=== PATIENT | female | born 1990 | race Hispanic/Latino ===

== ENCOUNTER 2017-04-28 14:24 | Outpatient (CLI) | payer OTHER ==
[2017-04-28 15:24] LABS: Bacteria,Urine 1+ /HPF (Negative); Bilirubin,Urine NEG (Negative); Blood,Urine NEG (Negative); Ketones,Urine NEG (Negative); Leukocyte Esterase,Urine TR (Negative); Mucus,Urine FEW /HPF; Nitrite,Urine NEG (Negative); Protein,Urine <15 mg/dL mg/dL (Negative); Urobilinogen,Urine < 2.0 mg/dL (<2.0)
[2017-04-28 15:30] LABS: Hematocrit 33.2 % (30.3-42.9); Hemoglobin 10.3 gm/dl (10.1-14.3); Mean Corpuscular HGB Conc 31 % (30-34); Platelet Count 211 K/mm3 (140-440); Red Blood Count 4.77 M/mm3 (3.65-5.03); Red Cell Distribution Width 19.1 % (13.2-15.2); White Blood Count 10.7 K/mm3 (4.5-11.0)
[2017-04-28 15:31] LABS: Mean Corpuscular Hemoglobin 22 pg (28-32); Mean Corpuscular Volume 69 fl (79-97)
[2017-04-28 15:38] LABS: Alanine Aminotransferase 12 units/L (7-56); Lactate Dehydrogenase 171 units/L (91-180); Uric Acid 6.4 mg/dL (3.5-7.6)
[2017-04-28 16:01] VITALS: BP 122/74
== END 2017-04-28 16:10 | disposition home or self-care (01) ==
LOC: TRG 14:24
PROVIDERS: ATTEND Obstetrics & Gynecology
DX: O48.0 Post-term pregnancy (principal); Z87.891 Personal history of nicotine dependence; Z3A.40 40 weeks gestation of pregnancy
CPT/HCPCS: 36415; 59025; 81001; 82565; 83615; 84450; 84460; 84550; 85027

== ENCOUNTER 2017-04-30 20:11 | Inpatient (IN) | payer OTHER ==
[2017-04-30] MEDS ORDERED: SUBLIMAZE IV PRN (20:22)
[2017-04-30] MEDS ORDERED: MINERAL OIL PO PRN (20:22)
[2017-04-30] MEDS ORDERED: ePHEDrine SULFATE IV PRN (20:22)
[2017-04-30] MEDS ORDERED: BRETHINE SUB-Q PRN (20:22)
[2017-04-30] MEDS ORDERED: XYLOCAINE 2% INFILTRATI ONE (20:27)
--- NOTE | 2017-04-30 20:29 | History and Physical Report ---
History of Present Illness Date of examination: 04/30/17 (pt presents for IOL @ 41w2d) Date of admission: 04/30/17 20:14 History of present illness: EDC Calculations LMP: 04/21/2017 Past History : 1 Term Births: 0 Premature Births: 0 Living Children: 0 Para: 0 Mult. Births: 0 Prev : 0 Prev. attempt? 0 Aborta: 0 Elect. Ab: 0 Spont. Ab: 0 Ectopics: 0 Past Medical History: Negative Past Medical History Past Surgical History: positive - knee, ear and hernia repair Past Medical History Anesthesia Complications: negative Anemia: negative Autoimmune Disorder: negative Bleeding Disorder: negative Blood Transfusions: negative Breast Disease: negative Diabetes: negative Heart Disease: negative Hypertension: negative Hepatitis/Liver Disease: negative Kidney Disease/UTI: negative Neurologic/Epilepsy/Migraines: negative Phlebitis/Varicosities: negative Psychiatric: negative Pulmonary Disease/Asthma: negative Thyroid Disease: negative Hospitalizations: negative 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 No ETOH or drugs Infection History Hx of STD: none HIV Risk Eval: low risk Hepatitis B Risk Eval: low risk Personal hx. of genital herpes: no Partner hx. of genital herpes: no Rash, Viral, or Febrile illness since last LMP? no Varicella/Chicken Pox Status: Previous Disease TB Risk: no Genetic History Congenital Heart Defect: Mom: no Dad: no Jovana Disease: Mom: no Dad: no Thalassemia Mom: no Dad: no Neural Tube Defect Mom: no Dad: no Down's Syndrome Mom: no Dad: no Raffaele-Sachs Mom: no Dad: no Sickle Cell Disease/Trait Mom: no Dad: no Hemophilia Mom: no Dad: no Muscular Dystrophy Mom: no Dad: no Cystic Fibrosis Mom: no Dad: no John Chorea Mom: no Dad: no Mental Retardation Mom: no Dad: no Fragile X Mom: no Dad: no Other Genetic/Chromosomal Disorder Mom: no Dad: no Child w/other defect Mom: no Dad: no Enviromental Exposures Xray Exposure: no Medication, drug, or alcohol use since LMP: no Chemical/Other Exposure: no Exposure to Cat Liter: no Hx of Parvovirus (Fifth Disease): no Occupational Exposure to Children: none Active Medications (reviewed today): IMPLANON IMPL (ETONOGESTREL IMPL) Current Allergies (reviewed today): No known allergies Laboratory Results Routine Urinalysis Leukocytes: negative Nitrite: negative Urobilinogen: negative Protein: negative Blood: negative Ketone: negative Bilirubin: negative Glucose: negative Urine HCG: positive Review of Systems General Denies fever, chills, sweats, anorexia, fatigue, weakness, malaise, weight loss and sleep disorder. Denies nausea, vomiting, headache, swelling of legs, abdominal pain, vaginal discharge, vaginal bleeding and contractions. Denies vaginal discharge, incontinence, dysuria, hematuria, urinary frequency, amenorrhea, menorrhagia, abnormal vaginal bleeding, pelvic pain, genital sores, decreased libido, painful periods, painful sex, urinary urgency, hot flashes, vaginal dryness, vaginal itching and vaginal odor. CV Denies chest pains, palpitations, syncope, dyspnea on exertion, orthopnea, PND and peripheral edema. Resp Denies cough, dyspnea at rest, excessive sputum, hemoptysis, wheezing and pleurisy. GI Denies nausea, vomiting, diarrhea, constipation, change in bowel habits, abdominal pain, melena, hematochezia, jaundice, gas/bloating, indigestion/ heartburn, dysphagia and odynophagia. Endo Denies cold intolerance, heat intolerance, polydipsia, polyphagia, polyuria and unusual weight change. Breast Denies left breast lump, right breast lump, nipple discharge, bloody discharge from nipple, breast pain, abnormal mammogram and breast enlargement. MS Denies back pain, joint pain, joint swelling, muscle cramps, muscle weakness, stiffness, arthritis, sciatica, restless legs, leg pain at night and leg pain with exertion. Derm Denies rash, itching, dryness and suspicious lesions. Neuro Denies paralysis, paresthesias, headache, seizures, tremors, vertigo, transient blindness, frequent falls, frequent headaches and difficulty walking. Psych Denies depression, anxiety, irritability and mood swings. Eyes Denies blurring, diplopia, irritation, discharge, vision loss, eye pain and photophobia. ENT Denies earache, ear discharge, tinnitus, decreased hearing, nasal congestion, nosebleeds, sore throat and hoarseness. Allergy Denies urticaria, allergic rash, hay fever and recurrent infections. Heme Denies abnormal bruising, bleeding and enlarged lymph nodes. 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 Vulva/Vagina: No lesions, normal BUS, normal rugae Cervix: No lesions; no cervical motion tenderness Uterus: normal size and position, midline, mobile Fundal Ht: 6 FHT: - Adnexae: no masses or tenderness Rectovaginal: no masses or tenderness Past History - Obstetrical History Expected Date of Delivery: 04/21/17 Actual Gestation: 41 Week(s) 2 Day(s) : 1 Para: 0 Number of Living Children: 0 Medications and Allergies Allergies Allergy/AdvReac Type Severity Reaction Status Date / Time No Known Allergies Allergy Verified 04/28/17 14:46 Home Medications Medication Instructions Recorded Confirmed Last Taken Type No Known Home Medications [No 04/28/17 04/28/17 Unknown History Reported Home Medications] Active Meds: Active Medications Dinoprostone (Cervidil) 10 mg VG ONCE ONE Stop: 04/30/17 20:23 Ephedrine Sulfate (Ephedrine Sulfate) 10 mg IV Q2M PRN PRN Reason: Hypotension Stop: 04/30/17 20:27 Fentanyl (Sublimaze) 100 mcg IV Q2H PRN PRN Reason: Labor Pain Lactated Ringer's (Lactated Ringers) 1,000 mls @ 125 mls/hr IV DIRECT CORINE Oxytocin/Sodium Chloride (Pitocin/Ns 20 Unit/1000ml Drip) 20 units in 1,000 mls @ 125 mls/hr IV DIRECT CORINE Lidocaine (Xylocaine 2%) 20 ml INFILTRATI ONCE ONE Stop: 04/30/17 20:23 Mineral Oil (Mineral Oil) 30 ml PO QHS PRN PRN Reason: Constipation Ondansetron HCl (Zofran) 4 mg IV Q8H PRN PRN Reason: Nausea And Vomiting Terbutaline Sulfate (Brethine) 0.25 mg SUB-Q ONCE PRN PRN Reason: Hyperstimulation/Hypertonicity Stop: 04/30/17 20:23 - Physical Exam Breasts: Positive: deferred Cardiovascular: Regular rate, Normal S1, Normal S2 Lungs: Positive: Normal air movement Abdomen: Positive: normal appearance, soft, normal bowel sounds. Negative: distention, tenderness Genitourinary (Female): Positive: normal external genitalia, normal perenium Vulva: both: normal Vagina: Positive: normal moisture. Negative: discharge Cervix: Negative: lesion, discharge Uterus: Positive: normal size, normal contour Adnexa: both: normal Anus/Rectum: Positive: normal perianal skin, heme negative. Negative: rectal mass, hemorrhoids Extremities: Positive: normal Deep Tendon Reflex Grade: Normal +2 - Obstetrical FHR: category 1 Uterine Contraction Monitor Mode: External Uterine Contraction Pattern: Irregular Uterine Tone Measurement Phase: Resting Uterine Contraction Intensity: Mild Results All other labs normal. Laboratory Data-Patient Name: QUINTEN BACON Test Date Result Blood Type 09/13/2016 O Rh 09/13/2016 Positive Antibody Screen negative Rubella 09/13/2016 IMMUNE Serology (RPR) 03/17/2017 NR HBsAg 09/13/2016 Negative Hemoglobin 01/05/2017 10.4 Hematocrit 01/05/2017 32.7 Platelets 09/13/2016 229 [id number] Chlamydia DNA 03/17/2017 Negative GC DNA/Culture 03/17/2017 Urine Culture 09/13/2016 Final report Group B Strep cult Negative PAP 08/29/2016 Normal, Satisfactory HIV 03/17/2017 AFP/Quad Screen Glucola Test 3hr GTT (Fasting) 1 hr 2 hr 3 hr [facility]-Patient Name:QUINTEN BACON Test Date Result Varicella Ab Sickle Cell 09/13/2016 Negative PPD Fibronectin Cystic Fibrosis Parvovirus TSH Free T4 Hepatitis C ALT AST Uric Acid Creatinine 24 hr Urine Protein REYES Assessment and Plan 26yo @ 41w2d presents for IOL. Office US gave EFW 89% @ 9-1pounds. Pt is aware of risks of delivering a large baby and the potential for section She has chosen to try for a vaginal delivery. GBS negative. Cervidil tonight. Pitocin tomorrow. Orders in EMR
[2017-04-30] MEDS ORDERED: PITOCin/NS 20 UNIT/1000ML DRIP 20 UNITS/1,000 ML BAG IV SCH (21:00)
[2017-04-30] MEDS ORDERED: CERVIDIL VG ONE (21:22)
[2017-04-30] MEDS ORDERED: AMBIEN PO ONE (22:10)
[2017-05-01 00:03] LABS: Hematocrit 28.4 % (30.3-42.9); Hemoglobin 9.3 gm/dl (10.1-14.3); Mean Corpuscular HGB Conc 33 % (30-34); Platelet Count 213 K/mm3 (140-440); Red Blood Count 4.11 M/mm3 (3.65-5.03); Red Cell Distribution Width 18.7 % (13.2-15.2); White Blood Count 12.6 K/mm3 (4.5-11.0)
[2017-05-01] MEDS: LACTATED RINGERS 1,000 ML IV SCH ×5 (00:03→13:18)
[2017-05-01 00:12] LABS: Mean Corpuscular Hemoglobin 23 pg (28-32); Mean Corpuscular Volume 69 fl (79-97)
[2017-05-01] MEDS ORDERED: PITOCin/NS 30 UNIT/500ML 30 UNITS/500 ML BAG IV SCH (02:00)
--- NOTE | 2017-05-01 04:53 | Progress Note ---
Assessment and Plan Pt states ctx are worsening and she has requested pain medication and to get ready for an epidural. SVE 2,80,-2 Pit @ 2mu. Will have pt be NPO with ice chips. Pt OOB to toilet. Pain med given Bolus for epidural. Re-eval as needed. Subjective - Subjective Date of service: 05/01/17 (pt c/o increasing pain with ctx) Interval history: EDC Calculations LMP: 04/21/2017 Past History : 1 Term Births: 0 Premature Births: 0 Living Children: 0 Para: 0 Mult. Births: 0 Prev : 0 Prev. attempt? 0 Aborta: 0 Elect. Ab: 0 Spont. Ab: 0 Ectopics: 0 Past Medical History: Negative Past Medical History Past Surgical History: positive - knee, ear and hernia repair Past Medical History Anesthesia Complications: negative Anemia: negative Autoimmune Disorder: negative Bleeding Disorder: negative Blood Transfusions: negative Breast Disease: negative Diabetes: negative Heart Disease: negative Hypertension: negative Hepatitis/Liver Disease: negative Kidney Disease/UTI: negative Neurologic/Epilepsy/Migraines: negative Phlebitis/Varicosities: negative Psychiatric: negative Pulmonary Disease/Asthma: negative Thyroid Disease: negative Hospitalizations: negative 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 No ETOH or drugs Infection History Hx of STD: none HIV Risk Eval: low risk Hepatitis B Risk Eval: low risk Personal hx. of genital herpes: no Partner hx. of genital herpes: no Rash, Viral, or Febrile illness since last LMP? no Varicella/Chicken Pox Status: Previous Disease TB Risk: no Genetic History Congenital Heart Defect: Mom: no Dad: no Jovana Disease: Mom: no Dad: no Thalassemia Mom: no Dad: no Neural Tube Defect Mom: no Dad: no Down's Syndrome Mom: no Dad: no Raffaele-Sachs Mom: no Dad: no Sickle Cell Disease/Trait Mom: no Dad: no Hemophilia Mom: no Dad: no Muscular Dystrophy Mom: no Dad: no Cystic Fibrosis Mom: no Dad: no [place]ugh Chorea Mom: no Dad: no Mental Retardation Mom: no Dad: no Fragile X Mom: no Dad: no Other Genetic/Chromosomal Disorder Mom: no Dad: no Child w/other defect Mom: no Dad: no Enviromental Exposures Xray Exposure: no Medication, drug, or alcohol use since LMP: no Chemical/Other Exposure: no Exposure to Cat Liter: no Hx of Parvovirus (Fifth Disease): no Occupational Exposure to Children: none Active Medications (reviewed today): IMPLANON IMPL (ETONOGESTREL IMPL) Current Allergies (reviewed today): No known allergies Laboratory Results Routine Urinalysis Leukocytes: negative Nitrite: negative Urobilinogen: negative Protein: negative Blood: negative Ketone: negative Bilirubin: negative Glucose: negative Urine HCG: positive Review of Systems General Denies fever, chills, sweats, anorexia, fatigue, weakness, malaise, weight loss and sleep disorder. Denies nausea, vomiting, headache, swelling of legs, abdominal pain, vaginal discharge, vaginal bleeding and contractions. Denies vaginal discharge, incontinence, dysuria, hematuria, urinary frequency, amenorrhea, menorrhagia, abnormal vaginal bleeding, pelvic pain, genital sores, decreased libido, painful periods, painful sex, urinary urgency, hot flashes, vaginal dryness, vaginal itching and vaginal odor. CV Denies chest pains, palpitations, syncope, dyspnea on exertion, orthopnea, PND and peripheral edema. Resp Denies cough, dyspnea at rest, excessive sputum, hemoptysis, wheezing and pleurisy. GI Denies nausea, vomiting, diarrhea, constipation, change in bowel habits, abdominal pain, melena, hematochezia, jaundice, gas/bloating, indigestion/ heartburn, dysphagia and odynophagia. Endo Denies cold intolerance, heat intolerance, polydipsia, polyphagia, polyuria and unusual weight change. Breast Denies left breast lump, right breast lump, nipple discharge, bloody discharge from nipple, breast pain, abnormal mammogram and breast enlargement. MS Denies back pain, joint pain, joint swelling, muscle cramps, muscle weakness, stiffness, arthritis, sciatica, restless legs, leg pain at night and leg pain with exertion. Derm Denies rash, itching, dryness and suspicious lesions. Neuro Denies paralysis, paresthesias, headache, seizures, tremors, vertigo, transient blindness, frequent falls, frequent headaches and difficulty walking. Psych Denies depression, anxiety, irritability and mood swings. Eyes Denies blurring, diplopia, irritation, discharge, vision loss, eye pain and photophobia. ENT Denies earache, ear discharge, tinnitus, decreased hearing, nasal congestion, nosebleeds, sore throat and hoarseness. Allergy Denies urticaria, allergic rash, hay fever and recurrent infections. Heme Denies abnormal bruising, bleeding and enlarged lymph nodes. 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 Vulva/Vagina: No lesions, normal BUS, normal rugae Cervix: No lesions; no cervical motion tenderness Uterus: normal size and position, midline, mobile Fundal Ht: 6 FHT: - Adnexae: no masses or tenderness Rectovaginal: no masses or tenderness Patient reports: movement normal Objective - Vital Signs Vital Signs: Vital Signs - 12hr 04/30/17 04/30/17 04/30/17 20:31 20:32 20:34 Temperature 98.3 F Pulse Rate 112 H 112 H Pulse Rate [ 121 H From Monitor] Respiratory 20 Rate Blood Pressure 118/75 Blood Pressure 118/75 [Right Arm] O2 Sat by Pulse 97 Oximetry 04/30/17 04/30/17 04/30/17 20:36 20:41 20:46 Temperature Pulse Rate 113 H 101 H 104 H Pulse Rate [ From Monitor] Respiratory Rate Blood Pressure Blood Pressure [Right Arm] O2 Sat by Pulse 96 97 96 Oximetry 04/30/17 04/30/17 04/30/17 20:51 20:56 21:01 Temperature Pulse Rate 118 H 105 H 116 H Pulse Rate [ From Monitor] Respiratory Rate Blood Pressure Blood Pressure [Right Arm] O2 Sat by Pulse 97 97 96 Oximetry 04/30/17 04/30/17 04/30/17 21:06 21:11 21:16 Temperature Pulse Rate 101 H 111 H 93 H Pulse Rate [ From Monitor] Respiratory Rate Blood Pressure Blood Pressure [Right Arm] O2 Sat by Pulse 97 96 96 Oximetry 04/30/17 04/30/17 04/30/17 21:21 21:26 21:31 Temperature Pulse Rate 97 H 100 H 105 H Pulse Rate [ From Monitor] Respiratory Rate Blood Pressure Blood Pressure [Right Arm] O2 Sat by Pulse 97 95 97 Oximetry 04/30/17 04/30/17 04/30/17 21:36 21:41 21:46 Temperature Pulse Rate 109 H 113 H 97 H Pulse Rate [ From Monitor] Respiratory Rate Blood Pressure Blood Pressure [Right Arm] O2 Sat by Pulse 98 96 97 Oximetry 04/30/17 04/30/17 05/01/17 23:30 23:34 01:02 Temperature 97.8 F Pulse Rate 82 97 H Pulse Rate [ 81 From Monitor] Respiratory 18 Rate Blood Pressure 110/60 Blood Pressure 110/60 [Right Arm] O2 Sat by Pulse 97 97 98 Oximetry 05/01/17 05/01/17 05/01/17 01:07 01:12 01:17 Temperature Pulse Rate 95 H 87 79 Pulse Rate [ From Monitor] Respiratory Rate Blood Pressure Blood Pressure [Right Arm] O2 Sat by Pulse 99 100 100 Oximetry 05/01/17 05/01/17 05/01/17 01:22 01:27 01:32 Temperature Pulse Rate 87 81 98 H Pulse Rate [ From Monitor] Respiratory Rate Blood Pressure Blood Pressure [Right Arm] O2 Sat by Pulse 100 100 99 Oximetry 05/01/17 05/01/17 05/01/17 01:37 02:12 02:16 Temperature Pulse Rate 79 80 75 Pulse Rate [ From Monitor] Respiratory Rate Blood Pressure 107/68 Blood Pressure [Right Arm] O2 Sat by Pulse 99 99 Oximetry 05/01/17 05/01/17 05/01/17 02:17 02:22 02:28 Temperature Pulse Rate 75 75 88 Pulse Rate [ From Monitor] Respiratory Rate Blood Pressure Blood Pressure [Right Arm] O2 Sat by Pulse 99 99 99 Oximetry 05/01/17 05/01/17 05/01/17 02:33 02:38 02:43 Temperature Pulse Rate 76 67 75 Pulse Rate [ From Monitor] Respiratory Rate Blood Pressure Blood Pressure [Right Arm] O2 Sat by Pulse 99 99 99 Oximetry 05/01/17 05/01/17 05/01/17 02:48 02:53 02:58 Temperature Pulse Rate 75 74 80 Pulse Rate [ From Monitor] Respiratory Rate Blood Pressure Blood Pressure [Right Arm] O2 Sat by Pulse 97 98 96 Oximetry 05/01/17 05/01/17 05/01/17 03:03 03:08 03:13 Temperature Pulse Rate 79 79 81 Pulse Rate [ From Monitor] Respiratory Rate Blood Pressure Blood Pressure [Right Arm] O2 Sat by Pulse 96 96 96 Oximetry 05/01/17 05/01/17 05/01/17 03:18 03:23 03:28 Temperature Pulse Rate 79 79 77 Pulse Rate [ From Monitor] Respiratory Rate Blood Pressure Blood Pressure [Right Arm] O2 Sat by Pulse 96 96 96 Oximetry 05/01/17 05/01/17 05/01/17 03:33 03:38 03:45 Temperature Pulse Rate 85 98 H 94 H Pulse Rate [ From Monitor] Respiratory Rate Blood Pressure Blood Pressure [Right Arm] O2 Sat by Pulse 97 97 99 Oximetry 05/01/17 05/01/17 05/01/17 03:46 03:47 03:50 Temperature 98.1 F Pulse Rate 88 74 Pulse Rate [ 88 From Monitor] Respiratory 20 Rate Blood Pressure 122/63 Blood Pressure 122/63 [Right Arm] O2 Sat by Pulse 98 Oximetry 05/01/17 05/01/17 05/01/17 03:55 04:00 04:05 Temperature Pulse Rate 84 71 79 Pulse Rate [ From Monitor] Respiratory Rate Blood Pressure Blood Pressure [Right Arm] O2 Sat by Pulse 100 99 97 Oximetry 05/01/17 05/01/17 05/01/17 04:10 04:15 04:20 Temperature Pulse Rate 90 92 H 87 Pulse Rate [ From Monitor] Respiratory Rate Blood Pressure Blood Pressure [Right Arm] O2 Sat by Pulse 98 99 98 Oximetry 05/01/17 05/01/17 05/01/17 04:25 04:30 04:35 Temperature Pulse Rate 77 72 80 Pulse Rate [ From Monitor] Respiratory Rate Blood Pressure Blood Pressure [Right Arm] O2 Sat by Pulse 100 100 100 Oximetry 05/01/17 05/01/17 04:40 04:45 Temperature Pulse Rate 80 85 Pulse Rate [ From Monitor] Respiratory Rate Blood Pressure Blood Pressure [Right Arm] O2 Sat by Pulse 99 99 Oximetry - Exam Breasts: deferred Cardiovascular: Regular rate Lungs: Normal air movement Abdomen: Present: normal appearance, soft. Absent: distention, tenderness Uterus: Present: normal FHR: auscultation normal, category 1 Uterine Contraction Monitor Mode: External Cervical Dilatation: 2 Cervical Effacement Percentage: 80 Uterine Contraction Frequency (min): -2 Uterine Contraction Pattern: Regular Uterine Contraction Intensity: Moderate Extremities: edema Deep Tendon Reflex Grade: Normal +2 - Labs Labs: Abnormal Labs 04/30/17 23:24 WBC 12.6 H Hgb 9.3 L Hct 28.4 L MCV 69 L MCH 23 L RDW 18.7 H Laboratory Results - last 24 hr 04/30/17 04/30/17 19:15 23:24 WBC 12.6 H RBC 4.11 Hgb 9.3 L Hct 28.4 L MCV 69 L MCH 23 L MCHC 33 RDW 18.7 H Plt Count 213 Blood Type O POSITIVE Antibody Screen TNR GORGE Antibody Screen Negative
[2017-05-01] MEDS ORDERED: ePHEDrine SULFATE ONE (06:26)
[2017-05-01] MEDS: ZOFRAN IV PRN ×2 (06:50→09:05)
[2017-05-01] MEDS ORDERED: ePHEDrine SULFATE IV PRN (06:54)
[2017-05-01] MEDS ORDERED: NARCAN 2 MG/2 ML IV PRN (06:54)
--- NOTE | 2017-05-01 06:54 | Anesthesia Consultation ---
Anesthesia Consult and Med Hx Date of service: 05/01/17 - Airway Anesthetic Teeth Evaluation: Good ROM Head & Neck: Adequate Mental/Hyoid Distance: Adequate Mallampati Class: Class II Intubation Access Assessment: Probably Good - Pulmonary Exam CTA: Yes - Cardiac Exam Cardiac Exam: RRR - Pre-Operative Health Status ASA Pre-Surgery Classification: ASA2 Proposed Anesthetic Plan: Epidural - Pulmonary Hx Asthma: No COPD: No - Cardiovascular System Hx Hypertension: No - Central Nervous System Hx Seizures: No Hx Psychiatric Problems: No - Endocrine Hx Renal Disease: No Hx Hypothyroidism: No Hx Hyperthyroidism: No - Hematic Hx Anemia: No Hx Sickle Cell Disease: No - Other Systems Hx Alcohol Use: No
[2017-05-01] MEDS ORDERED: fentaNYL-BUPIV 2 MCG/ML-0.125% 200 MCG/100 ML BAG EPIDURAL SCH (07:00)
--- NOTE | 2017-05-01 07:03 | Event Note ---
Date: 05/01/17 (epidural complete) Vomited approx 200ml stomach content. comfortable with epidural. SVE unchged.
--- NOTE | 2017-05-01 08:06 | Progress Note ---
Assessment and Plan - Patient Problems (1) Meconium in amniotic fluid Onset Date: 05/01/17 Current Visit: Yes Status: Acute Plan to address problem: SVE 4,80,-2 SROM thick dark brown meconium. NICU notified. Pt made aware of findings and that NICU team will be present for delivery. ISE/IUPC placed. Continue POC Re-eval as needed. Subjective - Subjective Date of service: 05/01/17 (SROM dark meconium) Interval history: EDC Calculations LMP: 04/21/2017 Past History : 1 Term Births: 0 Premature Births: 0 Living Children: 0 Para: 0 Mult. Births: 0 Prev : 0 Prev. attempt? 0 Aborta: 0 Elect. Ab: 0 Spont. Ab: 0 Ectopics: 0 Past Medical History: Negative Past Medical History Past Surgical History: positive - knee, ear and hernia repair Past Medical History Anesthesia Complications: negative Anemia: negative Autoimmune Disorder: negative Bleeding Disorder: negative Blood Transfusions: negative Breast Disease: negative Diabetes: negative Heart Disease: negative Hypertension: negative Hepatitis/Liver Disease: negative Kidney Disease/UTI: negative Neurologic/Epilepsy/Migraines: negative Phlebitis/Varicosities: negative Psychiatric: negative Pulmonary Disease/Asthma: negative Thyroid Disease: negative Hospitalizations: negative 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 No ETOH or drugs Infection History Hx of STD: none HIV Risk Eval: low risk Hepatitis B Risk Eval: low risk Personal hx. of genital herpes: no Partner hx. of genital herpes: no Rash, Viral, or Febrile illness since last LMP? no Varicella/Chicken Pox Status: Previous Disease TB Risk: no Genetic History Congenital Heart Defect: Mom: no Dad: no Jovana Disease: Mom: no Dad: no Thalassemia Mom: no Dad: no Neural Tube Defect Mom: no Dad: no Down's Syndrome Mom: no Dad: no Raffaele-Sachs Mom: no Dad: no Sickle Cell Disease/Trait Mom: no Dad: no Hemophilia Mom: no Dad: no Muscular Dystrophy Mom: no Dad: no Cystic Fibrosis Mom: no Dad: no Independence Chorea Mom: no Dad: no Mental Retardation Mom: no Dad: no Fragile X Mom: no Dad: no Other Genetic/Chromosomal Disorder Mom: no Dad: no Child w/other defect Mom: no Dad: no Enviromental Exposures Xray Exposure: no Medication, drug, or alcohol use since LMP: no Chemical/Other Exposure: no Exposure to Cat Liter: no Hx of Parvovirus (Fifth Disease): no Occupational Exposure to Children: none Active Medications (reviewed today): IMPLANON IMPL (ETONOGESTREL IMPL) Current Allergies (reviewed today): No known allergies Laboratory Results Routine Urinalysis Leukocytes: negative Nitrite: negative Urobilinogen: negative Protein: negative Blood: negative Ketone: negative Bilirubin: negative Glucose: negative Urine HCG: positive Review of Systems General Denies fever, chills, sweats, anorexia, fatigue, weakness, malaise, weight loss and sleep disorder. Denies nausea, vomiting, headache, swelling of legs, abdominal pain, vaginal discharge, vaginal bleeding and contractions. Denies vaginal discharge, incontinence, dysuria, hematuria, urinary frequency, amenorrhea, menorrhagia, abnormal vaginal bleeding, pelvic pain, genital sores, decreased libido, painful periods, painful sex, urinary urgency, hot flashes, vaginal dryness, vaginal itching and vaginal odor. CV Denies chest pains, palpitations, syncope, dyspnea on exertion, orthopnea, PND and peripheral edema. Resp Denies cough, dyspnea at rest, excessive sputum, hemoptysis, wheezing and pleurisy. GI Denies nausea, vomiting, diarrhea, constipation, change in bowel habits, abdominal pain, melena, hematochezia, jaundice, gas/bloating, indigestion/ heartburn, dysphagia and odynophagia. Endo Denies cold intolerance, heat intolerance, polydipsia, polyphagia, polyuria and unusual weight change. Breast Denies left breast lump, right breast lump, nipple discharge, bloody discharge from nipple, breast pain, abnormal mammogram and breast enlargement. MS Denies back pain, joint pain, joint swelling, muscle cramps, muscle weakness, stiffness, arthritis, sciatica, restless legs, leg pain at night and leg pain with exertion. Derm Denies rash, itching, dryness and suspicious lesions. Neuro Denies paralysis, paresthesias, headache, seizures, tremors, vertigo, transient blindness, frequent falls, frequent headaches and difficulty walking. Psych Denies depression, anxiety, irritability and mood swings. Eyes Denies blurring, diplopia, irritation, discharge, vision loss, eye pain and photophobia. ENT Denies earache, ear discharge, tinnitus, decreased hearing, nasal congestion, nosebleeds, sore throat and hoarseness. Allergy Denies urticaria, allergic rash, hay fever and recurrent infections. Heme Denies abnormal bruising, bleeding and enlarged lymph nodes. 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 Vulva/Vagina: No lesions, normal BUS, normal rugae Cervix: No lesions; no cervical motion tenderness Uterus: normal size and position, midline, mobile Fundal Ht: 6 FHT: - Adnexae: no masses or tenderness Rectovaginal: no masses or tenderness Patient reports: movement normal Objective - Vital Signs Vital Signs: Vital Signs - 12hr 04/30/17 04/30/17 04/30/17 20:31 20:32 20:34 Temperature 98.3 F Pulse Rate 112 H 112 H Pulse Rate [ 121 H From Monitor] Respiratory 20 Rate Blood Pressure 118/75 Blood Pressure 118/75 [Right Arm] O2 Sat by Pulse 97 Oximetry 04/30/17 04/30/17 04/30/17 20:36 20:41 20:46 Temperature Pulse Rate 113 H 101 H 104 H Pulse Rate [ From Monitor] Respiratory Rate Blood Pressure Blood Pressure [Right Arm] O2 Sat by Pulse 96 97 96 Oximetry 04/30/17 04/30/17 04/30/17 20:51 20:56 21:01 Temperature Pulse Rate 118 H 105 H 116 H Pulse Rate [ From Monitor] Respiratory Rate Blood Pressure Blood Pressure [Right Arm] O2 Sat by Pulse 97 97 96 Oximetry 06/04/30/17 04/30/17 21:06 21:11 21:16 Temperature Pulse Rate 101 H 111 H 93 H Pulse Rate [ From Monitor] Respiratory Rate Blood Pressure Blood Pressure [Right Arm] O2 Sat by Pulse 97 96 96 Oximetry 04/30/17 04/30/17 04/30/17 21:21 21:26 21:31 Temperature Pulse Rate 97 H 100 H 105 H Pulse Rate [ From Monitor] Respiratory Rate Blood Pressure Blood Pressure [Right Arm] O2 Sat by Pulse 97 95 97 Oximetry 04/30/17 04/30/17 04/30/17 21:36 21:41 21:46 Temperature Pulse Rate 109 H 113 H 97 H Pulse Rate [ From Monitor] Respiratory Rate Blood Pressure Blood Pressure [Right Arm] O2 Sat by Pulse 98 96 97 Oximetry 04/30/17 04/30/17 05/01/17 23:30 23:34 01:02 Temperature 97.8 F Pulse Rate 82 97 H Pulse Rate [ 81 From Monitor] Respiratory 18 Rate Blood Pressure 110/60 Blood Pressure 110/60 [Right Arm] O2 Sat by Pulse 97 97 98 Oximetry 05/01/17 05/01/17 05/01/17 01:07 01:12 01:17 Temperature Pulse Rate 95 H 87 79 Pulse Rate [ From Monitor] Respiratory Rate Blood Pressure Blood Pressure [Right Arm] O2 Sat by Pulse 99 100 100 Oximetry 05/01/17 05/01/17 05/01/17 01:22 01:27 01:32 Temperature Pulse Rate 87 81 98 H Pulse Rate [ From Monitor] Respiratory Rate Blood Pressure Blood Pressure [Right Arm] O2 Sat by Pulse 100 100 99 Oximetry 05/01/17 05/01/17 05/01/17 01:37 02:12 02:16 Temperature Pulse Rate 79 80 75 Pulse Rate [ From Monitor] Respiratory Rate Blood Pressure 107/68 Blood Pressure [Right Arm] O2 Sat by Pulse 99 99 Oximetry 05/01/17 05/01/17 05/01/17 02:17 02:22 02:28 Temperature Pulse Rate 75 75 88 Pulse Rate [ From Monitor] Respiratory Rate Blood Pressure Blood Pressure [Right Arm] O2 Sat by Pulse 99 99 99 Oximetry 05/01/17 05/01/17 05/01/17 02:33 02:38 02:43 Temperature Pulse Rate 76 67 75 Pulse Rate [ From Monitor] Respiratory Rate Blood Pressure Blood Pressure [Right Arm] O2 Sat by Pulse 99 99 99 Oximetry 05/01/17 05/01/17 05/01/17 02:48 02:53 02:58 Temperature Pulse Rate 75 74 80 Pulse Rate [ From Monitor] Respiratory Rate Blood Pressure Blood Pressure [Right Arm] O2 Sat by Pulse 97 98 96 Oximetry 05/01/17 05/01/17 05/01/17 03:03 03:08 03:13 Temperature Pulse Rate 79 79 81 Pulse Rate [ From Monitor] Respiratory Rate Blood Pressure Blood Pressure [Right Arm] O2 Sat by Pulse 96 96 96 Oximetry 05/01/17 05/01/17 05/01/17 03:18 03:23 03:28 Temperature Pulse Rate 79 79 77 Pulse Rate [ From Monitor] Respiratory Rate Blood Pressure Blood Pressure [Right Arm] O2 Sat by Pulse 96 96 96 Oximetry 05/01/17 05/01/17 05/01/17 03:33 03:38 03:45 Temperature Pulse Rate 85 98 H 94 H Pulse Rate [ From Monitor] Respiratory Rate Blood Pressure Blood Pressure [Right Arm] O2 Sat by Pulse 97 97 99 Oximetry 05/01/17 05/01/17 05/01/17 03:46 03:47 03:50 Temperature 98.1 F Pulse Rate 88 74 Pulse Rate [ 88 From Monitor] Respiratory 20 Rate Blood Pressure 122/63 Blood Pressure 122/63 [Right Arm] O2 Sat by Pulse 98 Oximetry 05/01/17 05/01/17 05/01/17 03:55 04:00 04:05 Temperature Pulse Rate 84 71 79 Pulse Rate [ From Monitor] Respiratory Rate Blood Pressure Blood Pressure [Right Arm] O2 Sat by Pulse 100 99 97 Oximetry 05/01/17 05/01/17 05/01/17 04:10 04:15 04:20 Temperature Pulse Rate 90 92 H 87 Pulse Rate [ From Monitor] Respiratory Rate Blood Pressure Blood Pressure [Right Arm] O2 Sat by Pulse 98 99 98 Oximetry 05/01/17 05/01/17 05/01/17 04:25 04:30 04:35 Temperature Pulse Rate 77 72 80 Pulse Rate [ From Monitor] Respiratory Rate Blood Pressure Blood Pressure [Right Arm] O2 Sat by Pulse 100 100 100 Oximetry 05/01/17 05/01/17 05/01/17 04:40 04:45 04:54 Temperature Pulse Rate 80 85 Pulse Rate [ From Monitor] Respiratory 20 Rate Blood Pressure Blood Pressure [Right Arm] O2 Sat by Pulse 99 99 Oximetry 05/01/17 05/01/17 05/01/17 04:55 05:00 05:05 Temperature Pulse Rate 71 69 79 Pulse Rate [ From Monitor] Respiratory Rate Blood Pressure Blood Pressure [Right Arm] O2 Sat by Pulse 100 99 96 Oximetry 05/01/17 05/01/17 05/01/17 05:10 05:15 05:17 Temperature Pulse Rate 81 85 81 Pulse Rate [ From Monitor] Respiratory Rate Blood Pressure Blood Pressure [Right Arm] O2 Sat by Pulse 96 96 94 Oximetry 05/01/17 05/01/17 05/01/17 05:20 05:25 05:30 Temperature Pulse Rate 71 78 109 H Pulse Rate [ From Monitor] Respiratory Rate Blood Pressure Blood Pressure [Right Arm] O2 Sat by Pulse 95 94 98 Oximetry 05/01/17 05/01/17 05/01/17 05:35 05:40 05:45 Temperature Pulse Rate 70 72 80 Pulse Rate [ From Monitor] Respiratory Rate Blood Pressure Blood Pressure [Right Arm] O2 Sat by Pulse 97 96 96 Oximetry 05/01/17 05/01/17 05/01/17 05:50 05:55 06:00 Temperature Pulse Rate 86 71 73 Pulse Rate [ From Monitor] Respiratory Rate Blood Pressure Blood Pressure [Right Arm] O2 Sat by Pulse 97 94 97 Oximetry 05/01/17 05/01/17 05/01/17 06:05 06:10 06:15 Temperature Pulse Rate 73 82 77 Pulse Rate [ From Monitor] Respiratory Rate Blood Pressure Blood Pressure [Right Arm] O2 Sat by Pulse 95 97 96 Oximetry 05/01/17 05/01/17 05/01/17 06:20 06:25 06:30 Temperature Pulse Rate 84 100 H 94 H Pulse Rate [ From Monitor] Respiratory Rate Blood Pressure Blood Pressure [Right Arm] O2 Sat by Pulse 99 100 100 Oximetry 05/01/17 05/01/17 05/01/17 06:35 06:36 06:38 Temperature Pulse Rate 77 83 86 Pulse Rate [ From Monitor] Respiratory Rate Blood Pressure 125/81 114/80 Blood Pressure [Right Arm] O2 Sat by Pulse 100 Oximetry 05/01/17 05/01/17 05/01/17 06:41 06:42 06:44 Temperature Pulse Rate 87 87 87 Pulse Rate [ From Monitor] Respiratory Rate Blood Pressure 134/83 123/77 123/78 Blood Pressure [Right Arm] O2 Sat by Pulse 98 Oximetry 05/01/17 05/01/17 05/01/17 06:46 06:47 06:49 Temperature Pulse Rate 125 H 93 H Pulse Rate [ From Monitor] Respiratory Rate Blood Pressure 120/80 166/66 Blood Pressure [Right Arm] O2 Sat by Pulse 97 Oximetry 05/01/17 05/01/17 05/01/17 06:50 06:51 06:52 Temperature Pulse Rate 85 78 83 Pulse Rate [ From Monitor] Respiratory Rate Blood Pressure 119/75 121/77 Blood Pressure [Right Arm] O2 Sat by Pulse 96 Oximetry 05/01/17 05/01/17 05/01/17 06:55 06:56 07:01 Temperature Pulse Rate 98 H 83 71 Pulse Rate [ From Monitor] Respiratory Rate Blood Pressure 116/73 Blood Pressure [Right Arm] O2 Sat by Pulse 97 96 Oximetry 05/01/17 05/01/17 05/01/17 07:06 07:11 07:16 Temperature Pulse Rate 77 70 67 Pulse Rate [ From Monitor] Respiratory Rate Blood Pressure 119/72 Blood Pressure [Right Arm] O2 Sat by Pulse 96 100 100 Oximetry 05/01/17 05/01/17 05/01/17 07:21 07:26 07:27 Temperature 98 F Pulse Rate 69 73 68 Pulse Rate [ 71 From Monitor] Respiratory 20 Rate Blood Pressure 113/73 Blood Pressure 119/93 [Right Arm] O2 Sat by Pulse 100 100 Oximetry 05/01/17 05/01/17 05/01/17 07:31 07:36 07:41 Temperature Pulse Rate 74 79 79 Pulse Rate [ From Monitor] Respiratory Rate Blood Pressure Blood Pressure [Right Arm] O2 Sat by Pulse 97 100 100 Oximetry 05/01/17 05/01/17 05/01/17 07:43 07:46 07:51 Temperature Pulse Rate 75 74 67 Pulse Rate [ From Monitor] Respiratory Rate Blood Pressure 124/80 Blood Pressure [Right Arm] O2 Sat by Pulse 100 100 Oximetry 05/01/17 05/01/17 07:56 07:57 Temperature Pulse Rate 77 84 Pulse Rate [ From Monitor] Respiratory Rate Blood Pressure 110/75 Blood Pressure [Right Arm] O2 Sat by Pulse 100 Oximetry - Exam Breasts: deferred Cardiovascular: Regular rate Lungs: Normal air movement Abdomen: Present: normal appearance, soft. Absent: distention, tenderness Uterus: Present: normal FHR: auscultation normal Uterine Contraction Monitor Mode: Internal Cervical Dilatation: 4 (thick meconium) Cervical Effacement Percentage: 80 (ISE/IUPC placed) station: -2 Uterine Contraction Frequency (min): 2 Uterine Contraction Duration: 45 Uterine Contraction Pattern: Regular Uterine Contraction Intensity: Moderate Extremities: normal Deep Tendon Reflex Grade: Normal +2 - Labs Labs: Abnormal Labs 04/30/17 23:24 WBC 12.6 H Hgb 9.3 L Hct 28.4 L MCV 69 L MCH 23 L RDW 18.7 H Laboratory Results - last 24 hr 04/30/17 04/30/17 19:15 23:24 WBC 12.6 H RBC 4.11 Hgb 9.3 L Hct 28.4 L MCV 69 L MCH 23 L MCHC 33 RDW 18.7 H Plt Count 213 Blood Type O POSITIVE Antibody Screen TNR GORGE Antibody Screen Negative
--- NOTE | 2017-05-01 13:06 | Event Note ---
Date: 05/01/17 Still 4 cm 100%-3 with now some molding. No change at all in more than 4 hours with large , Cat 1 tracing and adequate labor with IUPC in. Discussed with patient that C/S now indicated for probable CPD and failure to progress with adequate labor.
[2017-05-01] MEDS ORDERED: BICITRA ONE (14:14)
[2017-05-01] MEDS ORDERED: PEPCID IV ONE (14:14)
[2017-05-01] MEDS ORDERED: ANCEF/STERILE WATER 2 GM/20 ML 2 GM/20 ML SYRINGE IV ONE (14:14)
[2017-05-01] MEDS ORDERED: REGLAN ONE (14:14)
[2017-05-01] MEDS ORDERED: NACL 0.9% IR ONE (15:00)
[2017-05-01] MEDS ORDERED: WATER FOR IRRIG STERILE IR ONE (15:00)
[2017-05-01] MEDS ORDERED: ANCEF/STERILE WATER 2 GM/20 ML IV ONE (15:06)
[2017-05-01] MEDS ORDERED: MORPHINE ONE ×2 (15:16→15:17)
[2017-05-01] MEDS ORDERED: METHERGINE IM ONE (15:34)
[2017-05-01] MEDS ORDERED: ZOFRAN ONE (15:37)
[2017-05-01] MEDS ORDERED: TORADOL ONE (15:45)
[2017-05-01] MEDS ORDERED: NEO SYNEPHRINE ONE (15:53)
[2017-05-01] MEDS ORDERED: NACL 0.9% 100 ML ONE (15:53)
[2017-05-01] MEDS ORDERED: ZOFRAN IV PRN (16:14)
[2017-05-01] MEDS ORDERED: MORPHINE IV PRN ×2 (16:14)
[2017-05-01] MEDS ORDERED: NARCAN 0.4 MG/1 ML IV PRN (16:14)
[2017-05-01] MEDS ORDERED: MILK OF MAGNESIA PO PRN (16:14)
[2017-05-01] MEDS ORDERED: LANSINOH TP PRN (16:14)
[2017-05-01] MEDS ORDERED: PHENERGAN PR PRN (16:14)
[2017-05-01] MEDS ORDERED: TORADOL IV PRN (16:14)
[2017-05-01] MEDS ORDERED: TYLENOL PO PRN (16:14)
[2017-05-01] MEDS ORDERED: TUCKS PAD TP PRN (16:14)
--- NOTE | 2017-05-01 16:26 | Operative Report ---
Operative Report Operative Report: Date of Procedure: 05/01/2017 Procedure name(s): Primary transverse low segment section Pre-operative diagnosis: Intrauterine at 41 weeks and 3 days, suspected macrosomia, failure to progress past 4 cm despite adequate labor. meconium, category 1 tracing Post-operative diagnosis: Same plus cephalopelvic disproportion Surgeon: Bess Cleaning M.D. Farm Equipment Engineer: ALLISON Anesthesia: Epidural EBL: 1000 mL : 9 lbs. 7 oz. (4277 g) female, Apgars of 9 and 9 Time of : 1521 Findings Normal tubes and uterus and ovaries Procedure The patient was taken to the operating room and after adequate anesthesia was obtained she was placed in the supine position in left lateral tilt. Sequential compression devices were in place on both lower extremities and a Raphael catheter was placed in a sterile fashion. The abdomen was then prepped and draped in the usual fashion. Surgical time-out was done with the entire OR team attentive. A Pfannenstiel incision was made with a scalpel and sharp dissection was carried down through all layers of the abdomen in the usual fashion. The abdomen was entered bluntly and the lower uterine segment was identified. The presenting part was palpated and a bladder flap was created with the Metzenbaum scissors. The scalpel was used to incise the uterus in a transverse fashion and this incision was extended bluntly with finger traction and the membranes were ruptured. My hand was inserted into the uterus. The vertex was grasped, rotated to an OA presentation and delivered with a combination of traction and fundal pressure. The cord was clamped and cut and a viable infant was suctioned and handed off to the attending NICU staff and was a 9 lbs. 7 oz. female with Apgars of 9 and 9. The placenta was removed manually, the interior of the uterus was cleansed with moist lap packs and the uterus was exteriorized. The uterine incision was closed with a double imbricating layer of 0 Vicryl suture in a running fashion. She'll [id number] suture had to be placed in the left angle to control a developing hematoma inferior to the uterine incision. Hemostasis was adequate and the uterus was returned to the abdomen. Uterus was well contracted. The abdomen was then closed in layers: the rectus muscles were closed with several [id number] sutures of 0 Vicryl, the fascia was closed with running sutures of 0 Vicryl starting at both side corners in turn and tied together in the midline. The subcutaneous tissue was irrigated and then closed with several interrupted sutures of 2-0 plain and the skin was closed with a running subcuticular suture of 4-0 Vicryl. Sponge and Lap count correct X 3, estimated blood loss was 1000 mL and the Raphael was draining clear urine. The patient tolerated the procedure well and was discharged to PACU in good condition.
[2017-05-01] MEDS ORDERED: PITOCin/NS 20 UNIT/1000ML DRIP 20 UNITS/1,000 ML BAG IV SCH (17:00)
[2017-05-01] MEDS ORDERED: D5LR 1,000 ML IV SCH (17:00)
[2017-05-01] MEDS ORDERED: SODIUM CHLORIDE FLUSH SYRINGE 10 ML IV NR (17:00)
[2017-05-01] MEDS: ANCEF/NS 1 GM/50 ML 1 GM/50 ML BAG IV SCH (21:55)
[2017-05-01] MEDS: BENADRYL IV PRN (22:06)
[2017-05-02] MEDS: BENADRYL IV PRN (04:11)
[2017-05-02] MEDS: ANCEF/NS 1 GM/50 ML 1 GM/50 ML BAG IV SCH (05:22)
[2017-05-02 06:03] LABS: Hematocrit 23.8 % (30.3-42.9); Hemoglobin 7.2 gm/dl (10.1-14.3)
--- NOTE | 2017-05-02 07:05 | Progress Note ---
Assessment and Plan - Patient Problems (1) delivery delivered Onset Date: 05/01/17 Current Visit: Yes Status: Acute Plan to address problem: Pt w/o complaint other than itching but states it is much less with the Benadryl. VSS FF below umb Lochia scant Dressing D&I H&H 08/03 drop r/t blood loss from surgery Iron po started. Doing well s/p section P: continue pathway Adv diet and activity Subjective - Subjective Date of service: 05/02/17 (resting; only c/o itching) Principal diagnosis: Day # 1 s/p section Interval history: EDC Calculations LMP: 04/21/2017 Past History : 1 Term Births: 0 Premature Births: 0 Living Children: 0 Para: 0 Mult. Births: 0 Prev : 0 Prev. attempt? 0 Aborta: 0 Elect. Ab: 0 Spont. Ab: 0 Ectopics: 0 Past Medical History: Negative Past Medical History Past Surgical History: positive - knee, ear and hernia repair Past Medical History Anesthesia Complications: negative Anemia: negative Autoimmune Disorder: negative Bleeding Disorder: negative Blood Transfusions: negative Breast Disease: negative Diabetes: negative Heart Disease: negative Hypertension: negative Hepatitis/Liver Disease: negative Kidney Disease/UTI: negative Neurologic/Epilepsy/Migraines: negative Phlebitis/Varicosities: negative Psychiatric: negative Pulmonary Disease/Asthma: negative Thyroid Disease: negative Hospitalizations: negative 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 No ETOH or drugs Infection History Hx of STD: none HIV Risk Eval: low risk Hepatitis B Risk Eval: low risk Personal hx. of genital herpes: no Partner hx. of genital herpes: no Rash, Viral, or Febrile illness since last LMP? no Varicella/Chicken Pox Status: Previous Disease TB Risk: no Genetic History Congenital Heart Defect: Mom: no Dad: no Jovana Disease: Mom: no Dad: no Thalassemia Mom: no Dad: no Neural Tube Defect Mom: no Dad: no Down's Syndrome Mom: no Dad: no Raffaele-Sachs Mom: no Dad: no Sickle Cell Disease/Trait Mom: no Dad: no Hemophilia Mom: no Dad: no Muscular Dystrophy Mom: no Dad: no Cystic Fibrosis Mom: no Dad: no [place] Chorea Mom: no Dad: no Mental Retardation Mom: no Dad: no Fragile X Mom: no Dad: no Other Genetic/Chromosomal Disorder Mom: no Dad: no Child w/other defect Mom: no Dad: no Enviromental Exposures Xray Exposure: no Medication, drug, or alcohol use since LMP: no Chemical/Other Exposure: no Exposure to Cat Liter: no Hx of Parvovirus (Fifth Disease): no Occupational Exposure to Children: none Active Medications (reviewed today): IMPLANON IMPL (ETONOGESTREL IMPL) Current Allergies (reviewed today): No known allergies Laboratory Results Routine Urinalysis Leukocytes: negative Nitrite: negative Urobilinogen: negative Protein: negative Blood: negative Ketone: negative Bilirubin: negative Glucose: negative Urine HCG: positive Review of Systems General Denies fever, chills, sweats, anorexia, fatigue, weakness, malaise, weight loss and sleep disorder. Denies nausea, vomiting, headache, swelling of legs, abdominal pain, vaginal discharge, vaginal bleeding and contractions. Denies vaginal discharge, incontinence, dysuria, hematuria, urinary frequency, amenorrhea, menorrhagia, abnormal vaginal bleeding, pelvic pain, genital sores, decreased libido, painful periods, painful sex, urinary urgency, hot flashes, vaginal dryness, vaginal itching and vaginal odor. CV Denies chest pains, palpitations, syncope, dyspnea on exertion, orthopnea, PND and peripheral edema. Resp Denies cough, dyspnea at rest, excessive sputum, hemoptysis, wheezing and pleurisy. GI Denies nausea, vomiting, diarrhea, constipation, change in bowel habits, abdominal pain, melena, hematochezia, jaundice, gas/bloating, indigestion/ heartburn, dysphagia and odynophagia. Endo Denies cold intolerance, heat intolerance, polydipsia, polyphagia, polyuria and unusual weight change. Breast Denies left breast lump, right breast lump, nipple discharge, bloody discharge from nipple, breast pain, abnormal mammogram and breast enlargement. MS Denies back pain, joint pain, joint swelling, muscle cramps, muscle weakness, stiffness, arthritis, sciatica, restless legs, leg pain at night and leg pain with exertion. Derm Denies rash, itching, dryness and suspicious lesions. Neuro Denies paralysis, paresthesias, headache, seizures, tremors, vertigo, transient blindness, frequent falls, frequent headaches and difficulty walking. Psych Denies depression, anxiety, irritability and mood swings. Eyes Denies blurring, diplopia, irritation, discharge, vision loss, eye pain and photophobia. ENT Denies earache, ear discharge, tinnitus, decreased hearing, nasal congestion, nosebleeds, sore throat and hoarseness. Allergy Denies urticaria, allergic rash, hay fever and recurrent infections. Heme Denies abnormal bruising, bleeding and enlarged lymph nodes. 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 Vulva/Vagina: No lesions, normal BUS, normal rugae Cervix: No lesions; no cervical motion tenderness Uterus: normal size and position, midline, mobile Fundal Ht: 6 FHT: - Adnexae: no masses or tenderness Rectovaginal: no masses or tenderness Patient reports: appetite normal, voiding normally, pain well controlled, ambulating normally : doing well Objective - Vital Signs Latest vital signs: Vital Signs Temp Pulse Pulse Resp BP BP Pulse Ox 05/02/17 04:25 98.4 F 88 20 112/76 05/02/17 00:00 98.7 F 98 H 20 110/65 05/01/17 20:00 98.0 F 82 20 119/73 05/01/17 18:25 98.7 F 78 20 113/68 05/01/17 17:50 98.6 F 05/01/17 17:38 98.8 F 05/01/17 17:35 87 15 116/76 96 05/01/17 17:31 93 H 22 116/76 96 05/01/17 17:25 88 20 86/40 96 05/01/17 17:21 89 16 104/53 98 05/01/17 17:15 75 12 97/58 95 05/01/17 17:10 83 19 96/64 96 05/01/17 17:05 73 14 98/57 97 05/01/17 17:02 74 20 96/61 96 05/01/17 16:56 75 15 97 05/01/17 16:50 73 15 98 05/01/17 16:45 71 15 102/63 99 05/01/17 16:40 77 12 107/69 99 05/01/17 16:35 73 14 108/72 99 05/01/17 16:30 98.6 F 73 13 112/73 98 05/01/17 16:25 83 11 L 110/81 99 05/01/17 16:24 81 15 99 05/01/17 14:12 86 97 05/01/17 14:11 95 H 120/76 05/01/17 14:07 97 H 99 05/01/17 14:02 79 100 05/01/17 13:57 85 100 05/01/17 13:56 73 114/69 05/01/17 13:52 87 97 05/01/17 13:47 78 100 05/01/17 13:42 83 100 05/01/17 13:41 75 116/69 05/01/17 13:37 80 100 05/01/17 13:32 75 96 05/01/17 13:27 77 119/70 98 05/01/17 13:22 80 100 05/01/17 13:17 77 100 05/01/17 13:12 80 100 05/01/17 13:11 72 115/69 05/01/17 13:07 72 100 05/01/17 13:02 75 100 05/01/17 12:57 72 100 05/01/17 12:56 77 111/66 05/01/17 12:52 81 100 05/01/17 12:47 73 100 05/01/17 12:42 93 H 111/59 97 05/01/17 12:37 78 98 05/01/17 12:36 80 90 05/01/17 12:32 76 97 05/01/17 12:27 80 96 05/01/17 12:22 82 98 05/01/17 12:17 76 98 05/01/17 12:12 67 113/63 100 05/01/17 12:07 78 97 05/01/17 12:02 84 96 05/01/17 11:57 73 95 05/01/17 11:56 76 112/76 05/01/17 11:52 73 98 05/01/17 11:47 87 96 05/01/17 11:45 82 94 05/01/17 11:42 75 96 05/01/17 11:41 81 114/66 05/01/17 11:37 95 H 99 05/01/17 11:32 60 100 05/01/17 11:27 63 100 05/01/17 11:26 60 106/64 05/01/17 11:22 64 100 05/01/17 11:17 85 99 05/01/17 11:12 74 110/75 99 05/01/17 11:07 84 100 05/01/17 11:02 79 100 05/01/17 10:59 83 87 05/01/17 10:57 77 116/64 100 05/01/17 10:52 71 100 05/01/17 10:47 84 98 05/01/17 10:44 77 94 05/01/17 10:42 76 98 05/01/17 10:41 85 114/72 05/01/17 10:38 86 90 05/01/17 10:37 73 99 05/01/17 10:32 66 100 05/01/17 10:27 71 100 05/01/17 10:26 83 112/66 05/01/17 10:22 71 100 05/01/17 10:17 72 98 05/01/17 10:13 68 125/57 05/01/17 10:12 75 93 05/01/17 10:07 81 100 05/01/17 10:02 81 98 05/01/17 09:57 85 111/71 96 05/01/17 09:56 77 91 05/01/17 09:52 79 99 05/01/17 09:47 79 98 05/01/17 09:42 88 98 05/01/17 09:41 81 111/69 05/01/17 09:40 54 L 87 05/01/17 09:37 75 99 05/01/17 09:32 93 H 95 05/01/17 09:31 95 H 92 05/01/17 09:27 70 100 06/26/17 09:26 60 99/59 05/01/17 09:22 66 100 05/01/17 09:17 79 99 05/01/17 09:12 74 107/59 100 05/01/17 09:06 74 100 05/01/17 09:01 84 99 05/01/17 08:58 95 H 93 05/01/17 08:56 97 H 113/70 98 05/01/17 08:51 64 100 05/01/17 08:46 78 100 05/01/17 08:42 79 108/67 05/01/17 08:41 72 99 05/01/17 08:36 73 100 05/01/17 08:31 73 99 05/01/17 08:26 83 109/61 97 05/01/17 08:21 73 96 05/01/17 08:16 82 98 05/01/17 08:11 86 108/56 97 05/01/17 08:06 73 96 05/01/17 08:01 78 99 05/01/17 07:57 84 110/75 05/01/17 07:56 77 100 05/01/17 07:51 67 100 05/01/17 07:46 74 100 05/01/17 07:43 75 124/80 05/01/17 07:41 79 100 05/01/17 07:36 79 100 05/01/17 07:31 74 97 05/01/17 07:27 68 113/73 05/01/17 07:26 73 100 05/01/17 07:21 98 F 69 71 20 119/93 100 05/01/17 07:16 67 100 05/01/17 07:11 70 119/72 100 05/01/17 07:06 77 96 05/01/17 07:01 71 96 Intake and Output 05/01/17 05/02/17 05/02/17 22:59 06:59 14:59 Intake Total 2090 480 Output Total 940 1400 Balance 1150 -920 Intake: IV 1850 ANCEF/NS 1 GM/50 ML 1 gm 50 In 50 ml @ 100 mls/hr IV Q8H FORMERLY [facility], 1928–1983 Rx#:[id number] Oral 240 480 Output: Urine 940 1400 Indwelling Catheter 550 1400 Other: Total, Intake Amount 240 240 Total, Output Amount 550 600 Estimated Blood Loss 1,000 - Exam Breasts: Present: normal Cardiovascular: Present: Regular rate Lungs: Present: Clear to auscultation, Normal air movement Abdomen: Present: normal appearance, soft, normal bowel sounds Vulva: both: normal Uterus: Present: normal, firm, fundal height below umbilicus Extremities: Present: normal, edema Deep Tendon Reflex Grade: Normal +2 Incision: Present: normal, dry, intact, dressed - Labs Labs: Abnormal lab results 05/02/17 Range/Units 05:30 Hgb 7.2 L (10.1-14.3) gm/dl Hct 23.8 L (30.3-42.9) %
[2017-05-02] MEDS: MOTRIN PO PRN ×3 (09:02→23:31)
[2017-05-02] MEDS: PERCOCET 5/325 PO PRN ×4 (09:02→23:27)
[2017-05-02] MEDS ORDERED: BOOSTRIX IM ONE (16:15)
[2017-05-03] MEDS: PERCOCET 5/325 PO PRN (05:42)
[2017-05-03] MEDS: MOTRIN PO PRN (05:43)
--- NOTE | 2017-05-03 09:03 | Progress Note ---
Assessment and Plan patient doing well, desires d/c home this morning. Lochia scant, VSSAF, preexisitng anemia - asymptomatic, incision D&I. Plan for d/c home with f/u in office 1 week. - Patient Problems (1) delivery delivered Onset Date: 05/01/17 Current Visit: Yes Status: Acute Subjective - Subjective Date of service: 05/03/17 Principal diagnosis: Day # 2 s/p section Patient reports: appetite normal, voiding normally, pain well controlled, flatus , ambulating normally, no dizzy ambulation, no nauseated [place]: doing well, bottle feeding Objective - Vital Signs Latest vital signs: Vital Signs Temp Pulse Resp BP 05/03/17 05:43 18 05/03/17 05:42 18 05/03/17 01:44 98.1 F 94 H 20 126/80 05/02/17 23:31 18 05/02/17 23:27 18 05/02/17 16:15 98.7 F 111 H 18 114/65 05/02/17 12:40 98.3 F 84 18 104/68 Intake and Output 05/02/17 05/03/17 05/03/17 22:59 06:59 14:59 Intake Total 360 240 Balance 360 240 Intake: Oral 360 240 Other: Total, Intake Amount 360 240 # Voids Void 1 1 - Exam Breasts: Present: normal Cardiovascular: Present: Regular rate Lungs: Present: Clear to auscultation, Normal air movement Abdomen: Present: normal appearance, soft, normal bowel sounds Vulva: both: normal Uterus: Present: normal, firm, fundal height at umbilicus Extremities: Present: normal Incision: Present: normal, dry, intact
--- NOTE | 2017-05-03 09:05 | Discharge Summary ---
Providers - Providers Date of Admission: 04/30/17 20:14 Date of discharge: 05/03/17 (desires d/c home) Attending physician: FIDEL COELHO Primary care physician: FIDEL COELHO Hospitalization Reason for admission: active labor Delivery: Procedure: primary low transverse Episiotomy: none Laceration: none Incision: normal, dry, intact complications: none Discharge diagnosis: IUP at term delivered [place] baby: female Hospital course: uncomplicated c/s delivery Condition at discharge: Good Disposition: DC-01 TO HOME OR SELFCARE - Discharge Diagnoses (1) delivery delivered Status: Acute Plan - Discharge Medications Prescriptions: Docusate Sodium [Colace] 100 mg PO BID PRN #60 capsule PRN Reason: Constipation Ferrous Sulfate [Feosol 325 MG tab] 325 mg PO BID #60 tablet Ibuprofen [Motrin 800 MG tab] 800 mg PO Q8HR PRN #30 tablet PRN Reason: Pain oxyCODONE /ACETAMINOPHEN [Percocet 5/325 mg] 1 - 2 tab PO Q4HR PRN #30 tab PRN Reason: Pain - Provider Discharge Summary Activity: routine, no sex for 6 weeks, no heavy lifting 4 weeks, no strenuous exercise Diet: routine Instructions: routine Additional instructions: [] Smoking cessation referral if applicable(refer to patient education folder for contact #) [] Refer to [facility]'s [facility] Center Booklet Call your doctor immediately for: * Fever > 100.5 * Heavy vaginal bleeding ( >1 pad per hour) * Severe persistent headache * Shortness of breath * Reddened, hot, painful area to leg or breast * Drainage or odor from incision. * Keep incision clean and dry at all times and follow doctor's instructions regarding bathing/showering - Follow up plan Follow up: FIDEL COELHO MD [Primary Care Provider] - 7 Days (Congratulations!! Please call [phone] to schedule your incision check in 1 week. Call for any questions or concerns. ) Forms: [employer] Discharge Summary
[2017-05-03 11:05] VITALS: BP 110/59
== END 2017-05-03 12:43 | disposition home or self-care (01) | DRG 765 ==
LOC: TRG 20:11 → LD 20:14 → OB 05-01 17:58
PROVIDERS: ADMIT Obstetrics & Gynecology; ATTEND Obstetrics & Gynecology
PROC: 10D00Z1 Extraction of Products of Conception, Low, Open Approach (ICD-10-PCS; principal; 2017-05-01)
DX: O62.1 Secondary uterine inertia (principal); D62 Acute posthemorrhagic anemia; O42.02 Full-term premature rupture of membranes, onset of labor within 24 hours of rupture; O33.5XX0 Maternal care for disproportion due to unusually large fetus, not applicable or unspecified; O36.63X0 Maternal care for excessive fetal growth, third trimester, not applicable or unspecified; O77.0 Labor and delivery complicated by meconium in amniotic fluid; O99.03 Anemia complicating the puerperium; D64.9 Anemia, unspecified; Z3A.41 41 weeks gestation of pregnancy; Z37.0 Single live birth
CPT/HCPCS: 36415; 59200; 82962; 85014; 85018; 85027; 86592; 86850; 86900; 86901; 88307; 99211; G0463; J0690; J1200; J1885; J2210; J2270; J2370; J2405; J2590; J2765; J3010; J7120

== ENCOUNTER 2021-04-12 11:37 | Outpatient (CLI) | payer OTHER, MEDICAID ==
[2021-04-12 12:16] VITALS: BP 116/68
[2021-04-12] MEDS ORDERED: LACTATED RINGERS 500 ML IV ONE (12:41)
--- NOTE | 2021-04-12 13:50 | Ultrasound Report ---
ULTRASOUND BIOPHYSICAL PROFILE ULTRASOUND OB LIMITED INDICATION: decreased movement TECHNIQUE: Transabdominal ultrasound imaging. COMPARISON: None FINDINGS: breathing movement = 2 Gross body movement = 2 tone = 2 Qualitative amniotic fluid volume = 2 Total biophysical score = 8/8 Amniotic fluid index is 21.8 cm. Presentation is breech. heart rate is 127 beats per minute. IMPRESSION: biophysical profile equals 8/8. Breech presentation. Signer Name: Negro Schmitt Jr, MD Signed: 04/12/2021 1:45 PM Workstation Name: [id number]
== END 2021-04-12 14:11 | disposition home or self-care (01) ==
LOC: TRG 11:37 → APU 11:47 → TRG 14:11
PROVIDERS: ATTEND Obstetrics & Gynecology
DX: O36.8130 Decreased fetal movements, third trimester, not applicable or unspecified (principal); Z3A.33 33 weeks gestation of pregnancy
CPT/HCPCS: 59025; 76815; 76819

== ENCOUNTER 2021-05-07 06:44 | Inpatient (IN) | payer OTHER, MEDICAID ==
[2021-05-07] MEDS ORDERED: hydrALAZINE 20 MG/1 ML INJ ONE (07:16)
[2021-05-07] MEDS ORDERED: METOCLOPRAMIDE 10 MG/2 ML INJ IV NR (07:19)
[2021-05-07] MEDS ORDERED: ePHEDrine SULFATE 50 MG/1 ML INJ IV PRN (07:19)
[2021-05-07] MEDS ORDERED: METHYLERGONOVINE MALEATE 0.2 MG/ML VIAL IM PRN (07:19)
[2021-05-07] MEDS ORDERED: BICITRA ORAL LIQD 30ML PO NR (07:19)
[2021-05-07] MEDS ORDERED: OXYTOCIN 10 UNIT/1 ML INJ IM PRN (07:19)
[2021-05-07] MEDS ORDERED: LOPERAMIDE 2 MG CAP PO PRN (07:19)
[2021-05-07] MEDS ORDERED: miSOPROStol 200 MCG TAB PR PRN (07:19)
[2021-05-07] MEDS ORDERED: FAMOTIDINE 20 MG/2 ML INJ IV NR (07:19)
[2021-05-07] MEDS ORDERED: CARBOPROST TROMETHAMINE 250 MCG/1 ML INJ IM PRN (07:19)
[2021-05-07] MEDS ORDERED: LACTATED RINGERS 1,000 ML IV SCH (07:30)
--- NOTE | 2021-05-07 07:37 | History and Physical Report ---
History of Present Illness Date of examination: 05/07/21 Date of admission: 05/07/21 Chief complaint: I'm having chest pain, and having a hard time catching my breath. When I checked my blood pressure at home it was in the 140/100. History of present illness: Pt presented to triage this AM with c/o chest pain, elevated blood pressures at home, and shortness of breath. Upon arrival to triage, her blood pressure was noted to be 160/102. Exam as charted. EDC Confirmation: 05/28/2021 Gestational Age: 37 weeks on admission Past History : 3 Term Births: 1 Premature Births: 0 Living Children: 1 Para: 1 Mult. Births: 0 Prev : 0 Prev. attempt? 0 Aborta: 1 Elect. Ab: 0 Spont. Ab: 1 Ectopics: 0 # 1 Delivery date: 05/01/2017 Weeks Gestation: 41+3 Delivery type: Hours of labor: 14 Anesthesia type: epidural Delivery location: [facility] Infant Sex: female weight: 9.44 Comments: cephalopelvic disproportion # 2 Delivery date: 07/2020 Delivery type: SAB Past Medical History: Reviewed history from 08/29/2016 and no changes required: Negative Past Medical History Past Surgical History: Reviewed history from 06/19/2020 and no changes required: positive - knee, ear and hernia repair Past Medical History Anesthesia Complications: negative Anemia: negative Autoimmune Disorder: negative Bleeding Disorder: negative Blood Transfusions: negative Breast Disease: negative Diabetes: negative Heart Disease: negative Hypertension: negative Hepatitis/Liver Disease: negative Kidney Disease/UTI: negative Neurologic/Epilepsy/Migraines: negative Phlebitis/Varicosities: negative Psychiatric: negative Pulmonary Disease/Asthma: negative Thyroid Disease: negative Hospitalizations: negative 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 No ETOH or drugs Infection History Hx of STD: none HIV Risk Eval: no Hepatitis B Risk Eval: low risk Varicella/Chicken Pox Status: Immunized Genetic History Congenital Heart Defect: Mom: no Dad: no Jovana Disease: Mom: no Dad: no Thalassemia Mom: no Dad: no Neural Tube Defect Mom: no Dad: no Down's Syndrome Mom: no Dad: no Raffaele-Sachs Mom: no Dad: no Sickle Cell Disease/Trait Mom: no Dad: no Hemophilia Mom: no Dad: no Muscular Dystrophy Mom: no Dad: no Cystic Fibrosis Mom: no Dad: no [place] Chorea Mom: no Dad: no Mental Retardation Mom: no Dad: no Fragile X Mom: no Dad: no Other Genetic/Chromosomal Disorder Mom: no Dad: no Child w/other defect Mom: no Dad: no Enviromental Exposures Xray Exposure: no Medication, drug, or alcohol use since LMP: no Chemical/Other Exposure: no Exposure to Cat Liter: no Hx of Parvovirus (Fifth Disease): no Occupational Exposure to Children: none Active Medications: None Current Allergies (reviewed today): No known allergies Past History Past Medical History: no pertinent history Past Surgical History: section (2017), other (Knee, ear, and hernia repair.) Family/Genetic History: none Social history: no significant social history - Obstetrical History Expected Date of Delivery: 05/28/21 Actual Gestation: 37 Week(s) 0 Day(s) : 3 Para: 1 Hx # Term Pregnancies: 1 Number of Pregnancies: 0 Spontaneous Abortions: 1 Induced : 1 Medications and Allergies Allergies Allergy/AdvReac Type Severity Reaction Status Date / Time No Known Allergies Allergy Verified 05/07/21 07:04 Home Medications Medication Instructions Recorded Confirmed Last Taken Type One Daily Tablet 1 tab PO DAILY 05/07/21 05/07/21 1 Day Ago History ~05/06/21 Active Meds: Active Medications Acetaminophen (Acetaminophen 325 Mg Tab) 1,000 mg PO Q6H PRN PRN Reason: Pain, Mild (1-3) Carboprost Tromethamine (Carboprost Tromethamine 250 Mcg/1 Ml Inj) 250 mcg IM ONCE PRN PRN Reason: Uterine Bleeding Citric Acid/Sodium Citrate (Bicitra Oral Liqd 30ml) 30 ml PO ONCE ONE Stop: 05/07/21 07:20 Ephedrine Sulfate (Ephedrine Sulfate 50 Mg/1 Ml Inj) 10 mg IV Q2M PRN PRN Reason: Hypotension Famotidine (Famotidine 20 Mg/2 Ml Inj) 20 mg IV ONCE ONE Stop: 05/07/21 07:20 Lactated Ringer's (Lactated Ringers) 1,000 mls @ 125 mls/hr IV DIRECT CORINE Oxytocin/Sodium Chloride (Pitocin/Ns 30 Unit/500ml) 30 units in 500 mls @ 40 mls/hr IV TITR CORINE; Protocol Lactated Ringer's (Lactated Ringers) 1,000 mls @ 2,250 mls/hr IV PREOP CORINE Stop: 05/08/21 07:57 Oxytocin/Sodium Chloride (Pitocin/Ns 30 Unit/500ml) 30 units in 500 mls @ 0 mls/hr IV TITR CORINE; Protocol Cefazolin Sodium (Ancef/Sterile Water 2 Gm/20 Ml) 2 gm in 20 mls @ 80 mls/hr IV PREOP NR; Protocol Loperamide HCl (Loperamide 2 Mg Cap) 2 mg PO ONCE PRN PRN Reason: give with Hemabate Methylergonovine Maleate (Methylergonovine Maleate 0.2 Mg/Ml Vial) 0.2 mg IM ON CE PRN PRN Reason: Uterine Bleeding Metoclopramide HCl (Metoclopramide 10 Mg/2 Ml Inj) 10 mg IV ONCE ONE Stop: 05/07/21 07:20 Mineral Oil (Mineral Oil 30 Ml Oral Liqd) 30 ml PO QHS PRN PRN Reason: Constipation Misoprostol (Misoprostol 200 Mcg Tab) 800 mcg AK ONCE PRN PRN Reason: Uterine Bleeding Oxytocin (Oxytocin 10 Unit/1 Ml Inj) 10 unit IM ONCE PRN PRN Reason: Uterine Bleeding Review of Systems All systems: negative Cardiovascular: chest pain, shortness of breath - Vital Signs Vital signs: Vital Signs Pulse BP Pulse Ox 66 160/102 99 05/07/21 06:57 05/07/21 06:57 05/07/21 06:57 Temp Pulse Resp BP Pulse Ox 98.2 F 82 14 128/82 98 05/07/21 07:04 05/07/21 07:29 05/07/21 07:04 05/07/21 07:29 05/07/21 07:27 Pt denies HEMPHILL, blurred vision, spots before her eyes, and upper abdominal pain. Some c/o shortness of breath and chest pain. EKG ordered. Consulted with Dr. Lazcano, pt to be admitted for magnesium infusion and rpt . Orders placed in chart. - Physical Exam Breasts: Positive: deferred Cardiovascular: Normal S1, Normal S2 Lungs: Positive: Clear to auscultation Abdomen: Positive: normal appearance, soft Uterus: Positive: normal size (For 37 weeks gestation. ) Extremities: Positive: edema (+2 edema to lower extremities.) Deep Tendon Reflex Grade: Normal but brisk +3 - Obstetrical FHR: category 1 Uterine Contraction Monitor Mode: External Uterine Contraction Pattern: Irregular Uterine Tone Measurement Phase: Resting Uterine Contraction Intensity: Mild (Pt not feeling contractions.) Results Result Diagrams: 05/07/21 07:10 05/07/21 07:10 All other labs normal. GBS NEGATIVE HBsAg Screen Negative Negative *1 RPR Non Reactive Non Reactive *2 Rubella Antibodies, IgG 1.00 index Immune >0.99 *3 Non-immune <0.90 Equivocal 0.90 - 0.99 Immune >0.99 ABO Grouping O *4 Rh Factor Positive *5 Antibody Screen Negative Negative *6 Tests: (2) HIV Ag/Ab with Reflex ([id number]) HIV Screen 4th Generation wRfx Non Reactive Non Reactive *31 Tests: (3) HCV Ab w/Rflx to Verification ([id number]) ! HCV Ab <0.1 s/co ratio 0.0-0.9 *32 Tests: (4) Comment: ([id number]) ! Comment: SPRCS *33 Non reactive HCV antibody screen is consistent with no HCV infection, unless recent infection is suspected or other evidence exists to indicate HCV infection. T Assessment and Plan A: 30 y.o. @ 37 wks with gHTN. Previous X1. - Patient Problems (1) Previous section Current Visit: Yes Status: Acute Plan to address problem: orders in EMR. (2) Gestational hypertension w/o significant proteinuria in 3rd trimester Current Visit: Yes Status: Acute Plan to address problem: Admit to labor and delivery. Initiate IV. Draw admission labs. Magnesium infusion ordered. Pre eclampsia labs ordered (3) 37 or more weeks gestation of Current Visit: Yes Status: Acute Plan to address problem: Monitor status through continuous monitoring.
[2021-05-07] MEDS ORDERED: MAGNESIUM SULFATE 4 GM/100 ML BAG IV ONE ×2 (07:52)
[2021-05-07] MEDS ORDERED: MAGNESIUM SULFATE 40GM/1000ML 40 GM/1,000 ML BAG IV ONE (07:52)
[2021-05-07] MEDS ORDERED: OXYTOCIN DRIP 30 UNITS/500 ML BAG IV SCH ×2 (08:00)
[2021-05-07] MEDS ORDERED: CALCIUM GLUCONATE 1000 MG/10 ML INJ IV NR (08:00)
[2021-05-07] MEDS ORDERED: ACETAMINOPHEN 325 MG TAB PO PRN (08:00)
[2021-05-07] MEDS ORDERED: MAGNESIUM SULFATE 40GM/1000ML 40 GM/1,000 ML BAG IV SCH (08:00)
[2021-05-07] MEDS ORDERED: ceFAZolin/Water 2 GM/20 ML 2 GM/20 ML SYRINGE IV NR (08:00)
[2021-05-07] MEDS: LACTATED RINGERS 1,000 ML IV SCH ×2 (08:05→14:31)
[2021-05-07 08:21] LABS: Hematocrit 31.6 % (30.3-42.9); Hemoglobin 9.9 gm/dl (10.1-14.3); Mean Corpuscular HGB Conc 31 % (30-34); Platelet Count 149 K/mm3 (140-440); Red Blood Count 4.54 M/mm3 (3.65-5.03)
[2021-05-07 08:23] LABS: Bacteria,Urine 2+ /HPF (Negative); Bilirubin,Urine NEG (Negative); Blood,Urine SM (Negative); Color,Urine Yellow (Yellow); Urobilinogen,Urine < 2.0 mg/dL (<2.0)
[2021-05-07 08:25] LABS: Mean Corpuscular Volume 70 fl (79-97); Red Cell Distribution Width 20.1 % (13.2-15.2)
[2021-05-07 08:31] LABS: Alanine Aminotransferase 17 units/L (7-56); Uric Acid 8.1 mg/dL (3.5-7.6)
[2021-05-07] MEDS ORDERED: ONDANSETRON 4 MG/2 ML INJ ONE (10:33)
[2021-05-07] MEDS ORDERED: KETOROLAC 30 MG/1 ML INJ ONE (10:33)
[2021-05-07] MEDS ORDERED: dexAMETHasone 20 MG/5 ML VIAL ONE (10:33)
[2021-05-07] MEDS ORDERED: BUPIVACAINE/PF (0.5%) 5 MG/1 ML 30 ML VIAL INFILTRATI ONE (10:33)
--- NOTE | 2021-05-07 10:36 | Anesthesia Consultation ---
Anesthesia Consult and Med Hx Date of service: 05/07/21 - Airway Anesthetic Teeth Evaluation: Good ROM Head & Neck: Adequate Mental/Hyoid Distance: Adequate Mallampati Class: Class II Intubation Access Assessment: Probably Good - Pulmonary Exam CTA: Yes - Cardiac Exam Cardiac Exam: RRR - Pre-Operative Health Status ASA Pre-Surgery Classification: ASA3 Proposed Anesthetic Plan: Spinal - Pulmonary Hx Asthma: No COPD: No Hx Pneumonia: No - Cardiovascular System Hx Hypertension: Yes - Central Nervous System Hx Seizures: No Hx Psychiatric Problems: No - Endocrine Hx Renal Disease: No Hx End Stage Renal Disease: No Hx Hypothyroidism: No Hx Hyperthyroidism: No - Hematic Hx Anemia: No Hx Sickle Cell Disease: No - Other Systems Hx Alcohol Use: Yes (Occasionally) Hx Obesity: Yes
--- NOTE | 2021-05-07 10:36 | Anesthesia Day of Surgery ---
Anesthesia Day of Surgery - Day of Surgery Patient Examined: Yes Patient H&P Reviewed: Yes Patient is NPO: Yes
[2021-05-07] MEDS ORDERED: ceFAZolin/STERILE WATER 2 GM/20 ML SYRINGE IV ONE (12:02)
[2021-05-07] MEDS ORDERED: ePHEDrine SULFATE 50 MG/1 ML INJ ONE (12:46)
[2021-05-07] MEDS ORDERED: PHENYLEPHRINE/NS 1,000 MCG/10 ML SYRINGE (OR USE) IV ONE (12:46)
--- NOTE | 2021-05-07 13:08 | Operative Report ---
Operative Report Operative Report: Date of procedure: 05/07/2021 Pre-operative diagnosis: 37 weeks gestation Gestational hypertension with severe features Previous section Post-operative diagnosis: Same Procedure name(s): Repeat low transverse section via Pfannenstiel skin incision Surgeon: Dr. Arriaga Cloth Doubling Machine Operator: ALLISON Anesthesia: Combined spinal epidural EBL: Q. BL 825 mL Urine output: 150 mL of clear urine out at end of the procedure Fluids: 1100 mL Findings: Liveborn male infant 7 pounds 1.7 ounces Apgars of 9 and 9 at 1 and 5 minutes Grossly normal fallopian tubes and ovaries bilaterally Indications: Patient presented to triage complaining of chest discomfort and was noted to have elevated blood pressures. Blood pressures were in the severe range. Decision was made at this time to proceed with operative delivery. Procedure: Patient was taking to the operating room. Patient was then prepped and draped in sterile fashion after anesthesia was found to be adequate. A low transverse skin incision was made with the scalpel through previous incisional scar and carried down to the underlying layer of fascia with the Bovie. The fascia was then incised in the midline and this incision was extended bilaterally with the Bovie. The superior aspect of the fascia was grasped with Dmitriy clamps tented upward and dissected off of the anterior rectus muscles with the scalpel. In similar fashion the inferior aspect of the fascia was grasped with Dmitriy clamps tented upward and dissected off of the anterior rectus muscles. The rectus muscles were then bluntly divided in the midline. The peritoneum was identified and entered into sharply. The Juan Diego retractor was placed. The bladder blade was placed. [The bladder flap was created using the Metzenbaum scissors.] The bladder blade was replaced. A lower transverse uterine incision was made with the scalpel and extended bilaterally with the bandage scissors. Artificial rupture of membranes was performed yielding [clear amniotic fluid]. The 's head was then delivered atraumatically. The anterior shoulder and rest of delivered without difficulty. The umbilical cord was clamped x2. The cord was cut. The infant was then placed in sterile bassinet. [The cord blood was collected]. The placenta was manually e xtracted in its entirety. The uterus was exteriorized and cleared of all clots and debris. The uterine incision was closed using 0 Vicryl in a running locking fashion. [ A second imbricating layer of the same suture was then created.] The posterior cul-de-sac was copiously irrigated. The uterus was returned to the abdomen. The gutters were also irrigated. Heema blast was placed along the payal rine incision with excellent hemostasis noted. The anterior rectus muscles were reapproximated using 3-0 Vicryl. The anterior rectus fascia was reapproximated using 0 Vicryl in a running fashion. The subcuticular fat was reapproximated using 2-0 Vicryl in a running fashion. The skin was reapproximated with 4-0 Monocryl in a subcuticular stitch. The patient tolerated the procedure well. Sponge lap and needle counts were all correct x3. Patient was taken to the recovery room awake and in stable condition.
[2021-05-07] MEDS ORDERED: NALOXONE 0.4 MG/1 ML INJ IV PRN (13:11)
[2021-05-07] MEDS ORDERED: LANOLIN/ZINC/DIMETHICONE (LANSINOH) 7 GM TP PRN (13:11)
[2021-05-07] MEDS ORDERED: WITCH HAZEL/ GLYCERIN PAD TP PRN (13:11)
[2021-05-07] MEDS ORDERED: KETOROLAC 30 MG/1 ML INJ IV PRN (13:11)
[2021-05-07] MEDS ORDERED: HYDROcodone/ACETAMINOPHEN 5-325 MG TAB PO PRN (13:13)
--- NOTE | 2021-05-07 13:38 | Progress Note ---
Regional Anesthesia Block - Regional Anesthesia Block Start Time: 13:20 Stop Time: :25 Performed By:: YURI FLORES Procedure: U/S guided bilateral tap block performed for post-operative pain requested by Dr. Arriaga. H&P & labs reviewed. Procedure explained, questions answered, consent obtained. Patient in the supine position with ekg, blood pressure cuff and pulse ox on and working in PACU. Timeout performed immediately before start of procedure. Probe placed in the mid-axillary line and the external oblique, internal oblique, and transverse abdominus muscles identified. Skin was cleansed with chlorahexadine 0.5% and allowed to dry. A 4" 20 G [place] echogenic needle was advanced in plane until the tip was in the fascial plane between the internal oblique and the transverse abdominus. After negative aspiration 35 ml/side of [30 ml 0.5% Bupivacaine], [10 mg dexamethasone], and [40 ml sterile saline] was injected in 5 ml increments with negative aspiration in between. Patient tolerated procedure well. Lizzie RICARDO
[2021-05-07] MEDS ORDERED: D5W/LACTATED RINGERS 1,000 ML IV SCH (14:00)
[2021-05-07] MEDS ORDERED: ceFAZolin/NS 1 GM/50 ML 1 GM/50 ML BAG IV SCH ×2 (14:00→20:00)
[2021-05-07] MEDS ORDERED: IBUPROFEN 800 MG TAB ONE (21:12)
[2021-05-07] MEDS: IBUPROFEN 800 MG TAB PO PRN (21:15)
[2021-05-07] MEDS ORDERED: MINERAL OIL 30 ML ORAL LIQD PO PRN (22:00)
[2021-05-08] MEDS ORDERED: LACTATED RINGERS 1,000 ML ONE (01:52)
[2021-05-08] MEDS: HYDROcodone/ACETAMINOPHEN 5-325 MG TAB PO PRN ×3 (03:02→23:32)
[2021-05-08 03:40] LABS: Hematocrit 26.6 % (30.3-42.9); Hemoglobin 8.3 gm/dl (10.1-14.3)
--- NOTE | 2021-05-08 06:18 | Progress Note ---
Assessment and Plan - Patient Problems (1) Gestational hypertension w/o significant proteinuria in 3rd trimester Onset Date: ~05/07/21 Current Visit: Yes Status: Acute Plan to address problem: MGSO4 X 24hr will complete @ 1330 BP 140-120/90-60 (2) delivery delivered Onset Date: ~05/07/21 Current Visit: No Status: Acute Plan to address problem: Pt resting No c/o voiced FF below umb Lochia scant H&H 07/01, slight drop r/t blood loss from surgery. Stable s/p c/s on MGSO4 P: continue POC Will transfer to M/B with completion og MGSO4 Subjective - Subjective Date of service: 05/08/21 ("Will I get a different bed upstairs?") Principal diagnosis: DAy #1 S/P repeat section; GHTN MGSO4 Patient reports: appetite normal (taking juicee and crackers), voiding normally (clear yellow urine Adequate output: 750 from MN until 0500), pain well controlled : doing well Objective - Vital Signs Latest vital signs: Vital Signs Temp Pulse Resp BP BP Pulse Ox 05/08/21 06:13 70 97 05/08/21 06:07 65 95 05/08/21 06:05 66 94 05/08/21 06:03 70 96 05/08/21 06:02 74 114/69 05/08/21 06:00 67 94 05/08/21 05:58 61 96 05/08/21 05:53 64 95 05/08/21 05:50 64 94 05/08/21 05:48 64 96 05/08/21 05:42 67 95 05/08/21 05:41 66 94 05/08/21 05:38 73 98 05/08/21 05:34 62 93 05/08/21 05:33 71 95 05/08/21 05:32 67 112/70 05/08/21 05:28 62 95 05/08/21 05:27 66 94 05/08/21 05:23 67 96 05/08/21 05:22 63 94 05/08/21 05:18 67 95 05/08/21 05:17 68 93 05/08/21 05:13 69 92 05/08/21 05:11 65 94 05/08/21 05:08 65 95 05/08/21 05:06 68 93 05/08/21 05:03 67 95 05/08/21 05:02 69 130/80 05/08/21 04:59 69 94 05/08/21 04:58 70 97 05/08/21 04:53 66 94 05/08/21 04:48 72 94 05/08/21 04:47 71 94 05/08/21 04:43 71 94 05/08/21 04:41 70 94 05/08/21 04:38 76 96 05/08/21 04:33 84 97 05/08/21 04:32 85 148/95 05/08/21 04:28 76 99 05/08/21 04:24 71 93 05/08/21 04:23 71 96 05/08/21 04:18 67 94 05/08/21 04:13 70 93 05/08/21 04:12 66 93 05/08/21 04:08 70 95 05/08/21 04:06 68 93 05/08/21 04:03 66 94 05/08/21 04:02 67 132/77 05/08/21 04:00 68 94 05/08/21 03:58 66 95 05/08/21 03:55 78 93 05/08/21 03:53 68 95 05/08/21 03:49 68 94 05/08/21 03:48 67 95 05/08/21 03:43 66 96 05/08/21 03:38 69 97 05/08/21 03:33 65 97 05/08/21 03:32 67 136/76 05/08/21 03:28 61 98 05/08/21 03:22 64 98 05/08/21 03:18 61 99 05/08/21 03:13 78 98 05/08/21 03:08 68 98 05/08/21 03:02 78 142/97 100 05/08/21 02:58 69 99 05/08/21 02:53 83 99 05/08/21 02:47 75 100 05/08/21 02:43 62 98 05/08/21 02:38 63 97 05/08/21 02:33 63 96 05/08/21 02:28 73 96 05/08/21 02:23 69 96 05/08/21 02:17 67 95 05/08/21 02:16 64 94 05/08/21 02:12 82 98 05/08/21 02:08 62 96 05/08/21 02:07 67 94 05/08/21 02:02 62 127/75 97 05/08/21 01:58 64 96 05/08/21 01:53 74 97 05/08/21 01:47 71 98 05/08/21 01:42 66 99 05/08/21 01:37 63 97 05/08/21 01:32 60 135/85 97 05/08/21 01:27 64 97 05/08/21 01:22 65 96 05/08/21 01:17 68 97 05/08/21 01:12 68 96 05/08/21 01:07 86 97 05/08/21 01:02 83 141/90 96 05/08/21 00:57 85 96 05/08/21 00:54 76 93 05/08/21 00:52 77 97 05/08/21 00:47 78 95 05/08/21 00:45 74 94 05/08/21 00:42 77 94 05/08/21 00:39 70 94 05/08/21 00:37 69 95 05/08/21 00:33 68 94 05/08/21 00:32 74 124/82 95 05/08/21 00:28 70 94 05/08/21 00:27 72 96 05/08/21 00:22 69 95 05/08/21 00:19 68 93 05/08/21 00:17 69 94 05/08/21 00:13 68 94 05/08/21 00:12 70 95 05/08/21 00:07 72 95 05/08/21 00:02 65 123/77 95 05/07/21 23:57 71 97 05/07/21 23:52 75 96 05/07/21 23:47 75 97 05/07/21 23:42 79 97 05/07/21 23:37 73 97 05/07/21 23:33 78 142/76 05/07/21 23:31 79 96 05/07/21 23:26 89 96 05/07/21 23:21 84 97 05/07/21 23:16 81 96 05/07/21 23:11 78 97 05/07/21 23:06 85 97 05/07/21 23:02 76 125/66 05/07/21 23:01 69 96 05/07/21 22:56 89 94 05/07/21 22:54 74 94 05/07/21 22:51 74 94 05/07/21 22:47 71 94 05/07/21 22:46 71 95 05/07/21 22:41 79 95 05/07/21 22:40 76 94 05/07/21 22:36 69 95 05/07/21 22:34 71 93 05/07/21 22:32 76 117/69 05/07/21 22:31 75 95 05/07/21 22:29 73 94 05/07/21 22:26 77 95 05/07/21 22:22 78 94 05/07/21 22:21 75 96 05/07/21 22:16 88 95 05/07/21 22:15 78 94 05/07/21 22:11 71 96 05/07/21 22:06 78 96 05/07/21 22:02 77 123/80 05/07/21 22:01 79 96 05/07/21 21:59 75 94 05/07/21 21:56 73 95 05/07/21 21:51 70 96 05/07/21 21:46 87 97 05/07/21 21:41 77 96 05/07/21 21:36 79 96 05/07/21 21:32 90 122/84 05/07/21 21:31 92 H 98 05/07/21 21:26 84 98 05/07/21 21:21 83 97 05/07/21 21:16 87 98 05/07/21 21:11 84 98 05/07/21 21:06 75 98 05/07/21 21:02 75 126/77 05/07/21 21:01 86 98 05/07/21 20:56 81 97 05/07/21 20:51 84 95 05/07/21 20:46 78 96 05/07/21 20:41 74 96 05/07/21 20:36 71 98 05/07/21 20:32 81 137/81 05/07/21 20:31 89 96 05/07/21 20:26 92 H 98 05/07/21 20:21 78 97 05/07/21 20:16 87 98 05/07/21 20:11 92 H 98 05/07/21 20:06 75 98 05/07/21 20:02 75 110/72 07 20:01 73 98 07/02 19:56 81 97 02 19:51 73 98 0702 19:46 80 99 0702 19:41 84 98 0702 19:36 83 99 0702 19:32 65 111/65 05/07/21 19:31 68 98 05/07/21 19:26 85 97 02 19:21 67 98 07 19:16 73 98 0702 19:11 66 98 0702 19:06 72 96 0702 19:02 64 122/78 05/07/21 19:01 74 98 05/07/21 19:00 98.3 F 74 98 H 122/78 05/07/21 18:56 76 97 05/07/21 18:51 79 98 05/07/21 18:46 82 98 05/07/21 18:41 68 98 05/07/21 18:36 83 99 05/07/21 18:32 67 139/76 05/07/21 18:31 68 98 07 18:26 85 99 05/07/21 18:21 76 98 05/07/21 18:16 62 99 05/07/21 18:11 65 99 05/07/21 18:06 67 98 0702 18:02 68 115/66 05/07/21 18:01 68 99 05/07/21 17:56 63 99 05/07/21 17:51 68 98 05/07/21 17:46 61 99 05/07/21 17:41 61 99 0702 17:36 62 99 0702 17:32 58 L 119/81 05/07/21 17:31 61 98 0702 17:26 64 98 0702 17:21 80 98 0702 17:16 66 98 02 17:11 75 99 0702 17:06 72 98 0702 17:02 71 100/61 0702 17:01 65 98 0702 16:56 67 98 0702 16:51 63 98 05/07/21 16:46 70 98 0712/27 16:41 66 97 07/02/21 16:36 61 97 05/07/21 16:32 55 L 106/61 05/07/21 16:31 57 L 98 05/07/21 16:26 57 L 97 05/07/21 16:21 59 L 97 05/07/21 16:16 56 L 97 05/07/21 16:11 57 L 96 05/07/21 16:06 61 97 05/07/21 16:02 52 L 115/68 05/07/21 16:01 58 L 97 05/07/21 15:56 61 96 05/07/21 15:51 73 97 05/07/21 15:46 55 L 97 05/07/21 15:41 68 96 05/07/21 15:36 62 96 05/07/21 15:32 61 107/67 05/07/21 15:31 60 98 05/07/21 15:25 62 97 05/07/21 15:20 64 97 05/07/21 15:15 63 98 05/07/21 15:10 61 98 05/07/21 15:05 64 98 05/07/21 15:02 57 L 110/66 05/07/21 15:00 65 96 05/07/21 14:55 60 97 05/07/21 14:50 65 97 05/07/21 14:45 64 97 05/07/21 14:40 63 97 05/07/21 14:35 60 99 05/07/21 14:30 63 99 05/07/21 14:25 61 96 05/07/21 14:20 60 96 05/07/21 14:17 61 117/73 05/07/21 14:15 65 96 05/07/21 13:55 54 L 16 111/74 98 05/07/21 13:50 51 L 18 122/78 100 05/07/21 13:45 52 L 18 117/74 100 05/07/21 13:40 97.6 F 54 L 12 118/64 100 05/07/21 13:35 52 L 8 L 125/80 100 05/07/21 13:30 55 L 12 125/84 100 05/07/21 13:25 97.8 F 52 L 20 117/70 100 05/07/21 13:20 97.8 F 57 L 16 110/65 100 05/07/21 13:15 63 14 101/59 95 07/02 13:13 97.9 F 05/07/21 11:58 77 98 0702 11:53 79 98 0702 11:51 75 117/66 07/02 11:48 77 97 0702 11:43 72 98 07/12/27 11:38 81 97 0702 11:33 81 98 0702 11:28 77 97 07/02 11:22 75 128/69 07/02 10:51 89 143/80 07 10:44 79 129/65 0702 10:40 88 130/83 07 10:34 75 131/71 02 10:29 103 H 127/78 05/07/21 10:24 81 120/89 05/07/21 10:18 82 128/65 02 10:13 83 134/85 07/02 10:09 78 132/85 0702 10:03 80 138/80 07/02 09:59 81 134/80 07 09:54 80 141/84 07/02/ 09:49 81 135/78 0702 09:43 87 136/83 0702 09:40 80 140/84 07/02 09:33 77 134/78 02 09:28 86 138/83 0702 09:25 88 138/88 02 09:19 78 134/78 0702 09:13 80 143/85 0702 09:09 85 137/83 07/02 09:03 83 134/79 07/02/ 08:59 83 135/80 0702 08:53 88 136/84 07/02 08:48 85 131/88 0702 08:43 78 126/77 070221 08:38 82 139/85 07/0221 08:33 77 138/88 0702 08:28 76 136/66 07/02/21 08:23 80 137/70 070221 08:20 79 141/68 07/0221 08:15 78 139/78 07/02/21 08:03 82 133/92 05/07/21 07:51 98.3 F 18 05/07/21 07:47 80 131/66 05/07/21 07:29 82 128/82 05/07/21 07:27 76 98 05/07/21 07:24 76 126/92 05/07/21 07:22 66 99 05/07/21 07:17 62 99 05/07/21 07:16 67 158/92 05/07/21 07:12 67 158/92 97 05/07/21 07:07 78 99 05/07/21 07:04 98.2 F 75 14 160/102 98 05/07/21 07:02 67 98 05/07/21 06:57 66 160/102 99 Intake and Output 05/07/21 05/07/21 05/08/21 14:59 22:59 06:59 Intake Total 1894.167 Output Total 1250 600 750 Balance 644.167 -600 -750 Intake: IV 1894.167 Lactated Ringers 1,000 ml 531.667 @ 125 mls/hr IV DIRECT CORINE Rx#:[id number] Lactated Ringers 1,000 ml 262.5 @ 2250 mls/hr IV PREOP CORINE Rx#:[id number] Output: Urine 1250 600 750 Indwelling Catheter 350 600 750 Uretheral (Raphael) 600 Other: Total, Output Amount 100 300 150 Weight 218 lb Estimated Blood Loss 825 Patient Weight 05/08/21 06:59 Weight 218 lb - Exam Breasts: Present: normal Cardiovascular: Present: Regular rate Lungs: Present: Clear to auscultation Abdomen: Present: normal appearance, soft, normal bowel sounds Uterus: Present: normal, fundal height below umbilicus Extremities: Present: normal, edema Deep Tendon Reflex Grade: Normal +2 Incision: Present: normal, dry, intact - Labs Labs: Abnormal lab results 05/07/21 05/07/21 05/07/21 Range/Units 07:10 07:10 07:20 Hgb 9.9 L (10.1-14.3) gm/dl Hct (30.3-42.9) % MCV 70 L (79-97) fl MCH 22 L (28-32) pg RDW 20.1 H (13.2-15.2) % Uric Acid 8.1 H (3.5-7.6) mg/dL Magnesium (1.7-2.3) mg/dL Lactate Dehydrogenase 247 H (91-180) units/L Urine WBC (Auto) 24.0 H (0.0-6.0) /HPF U Epithel Cells (Auto) 15.0 H (0-13.0) /HPF 05/07/21 05/07/21 05/08/21 Range/Units 17:47 23:23 02:48 Hgb (10.1-14.3) gm/dl Hct (30.3-42.9) % MCV (79-97) fl MCH (28-32) pg RDW (13.2-15.2) % Uric Acid (3.5-7.6) mg/dL Magnesium 4.60 H 5.60 H 6.20 H (1.7-2.3) mg/dL Lactate Dehydrogenase (91-180) units/L Urine WBC (Auto) (0.0-6.0) /HPF U Epithel Cells (Auto) (0-13.0) /HPF 05/08/21 Range/Units 02:48 Hgb 8.3 L (10.1-14.3) gm/dl Hct 26.6 L (30.3-42.9) % MCV (79-97) fl MCH (28-32) pg RDW (13.2-15.2) % Uric Acid (3.5-7.6) mg/dL Magnesium (1.7-2.3) mg/dL Lactate Dehydrogenase (91-180) units/L Urine WBC (Auto) (0.0-6.0) /HPF U Epithel Cells (Auto) (0-13.0) /HPF
[2021-05-08] MEDS ORDERED: ceFAZolin/NS 1 GM/50 ML 1 GM/50 ML BAG IV SCH (07:00)
--- NOTE | 2021-05-08 09:50 | Electrocardiograph Report ---
[facility] Test Date: 2021-05-07 Test Time: 09:19:25 Pat Name: QUINTEN BACON Department: Room: 2010 11 Gender: F Coupon Manifest Clerk: ABDULLAHI : 1990 Requested By: ALEJANDRO NAIR Order Number: [id number] Reading MD: Hector Yeung Measurements Intervals Forbes Rate: 82 P: 33 CA: 140 QRS: 4 QRSD: 85 T: 10 QT: 400 QTc: 469 Interpretive Statements Sinus rhythm No previous ECG available for comparison Electronically Signed On 05-08-2021 9:50:02 EDT by Hector Yeung
[2021-05-08] MEDS ORDERED: TETANUS,DIPH,PERTUSS(ACELL) VACCINE 0.5 ML SYRINGE IM ONE (13:12)
--- NOTE | 2021-05-08 16:04 | Post Anesthesia Evaluation ---
- Post Anesthesia Evaluation Patient Participated: Yes Airway Patent: Yes Stable Respiratory Function: Yes Nausea/Vomiting: No Temp > 96.8F: Yes Pain Manageable: Yes Adequeate Hydration: Yes Anesthesia Complications: No Block Receding Appropriately: Yes
[2021-05-08] MEDS: IBUPROFEN 800 MG TAB PO PRN (17:41)
--- NOTE | 2021-05-09 08:28 | Discharge Summary ---
Providers - Providers Date of Admission: 05/07/21 07:22 Date of discharge: 05/09/21 (pt OOB ambulating in room; asking to go home) Attending physician: MARTINA GARCIA Primary care physician: MARTINA GARCIA Hospitalization Reason for admission: section, IUP at term, other (GHTN; chest pain; DFM) Delivery: Procedure: repeat low transverse Episiotomy: none Laceration: none Incision: normal, dry, intact Other procedures: none complications: other (GHTN Pt received MGSO4 X 24hr) Discharge diagnosis: IUP at term delivered baby: male Hospital course: uncomplicated repeat section GHTN 24hr MGSO4 postop; BP normotensive Pt in good spirits OOB walking in room. Asking to go home. BP 110-120/60-70 No c/o HEMPHILL, blurred vision, chest pain. Incision D&I Lochia scant. No s/sx of anemia. Doing well s/p r c/s and GHTN. P: d/c today with instructions Stressed to pt to call with any HEMPHILL, not relieved with Tylenol, blurred vision, chest pain. Advance activity as tolerated Condition at discharge: Good Disposition: DC-01 TO HOME OR SELFCARE - Discharge Diagnoses (1) Gestational hypertension w/o significant proteinuria in 3rd trimester Status: Acute Comment: BP wnl 110-120/60-70 Will f/u in office 1 week. No BP meds (2) delivery delivered Status: Acute Comment: RTO 1 week postop care Plan - Discharge Medications Prescriptions: Docusate Sodium [Colace] 100 mg PO BID PRN #60 capsule PRN Reason: Constipation Lidocain2.5%/Prilocai2.5% [Emla] 2 gm TP ONCE #1 tube Ferrous Sulfate [Feosol 325 MG tab] 325 mg PO QDAY #60 tablet Ibuprofen [Motrin 800 MG tab] 800 mg PO Q8HR PRN #30 tablet PRN Reason: Pain, Moderate (4-6) oxyCODONE /ACETAMINOPHEN [Percocet 5/325] 1 tab PO Q4HR #30 tab - Provider Discharge Summary Activity: routine, no sex for 6 weeks, no heavy lifting 4 weeks, no strenuous exercise Diet: other (NO SALT) Instructions: routine Additional instructions: [] Smoking cessation referral if applicable(refer to patient education folder for contact #) [] Refer to [facility] Booklet Call your doctor immediately for: * Fever > 100.5 * Heavy vaginal bleeding ( >1 pad per hour) * Severe persistent headache * Shortness of breath * Reddened, hot, painful area to leg or breast * Drainage or odor from incision. * Keep incision clean and dry at all times and follow doctor's instructions regarding bathing/showering - Follow up plan Follow up: MARTINA GARCIA MD [Primary Care Provider] - 7 Days (Congratulations! Please call [phone] to schedule your son's circumcision and your postoperative visit in 1 week. Bring the EMLA cream with you to his visit. Do NOT use at home. Take medication as prescribed. Call with any headache, not relieved with Tylenol, blurred vision, chest pain. Call with any concerns.) Forms: [facility] Discharge Summary
[2021-05-09 08:48] VITALS: BP 127/81
[2021-05-09] MEDS: IBUPROFEN 800 MG TAB PO PRN (10:10)
[2021-05-09] MEDS: HYDROcodone/ACETAMINOPHEN 5-325 MG TAB PO PRN (12:41)
== END 2021-05-09 15:00 | disposition home or self-care (01) | DRG 788 ==
LOC: TRG 06:44 → APU 06:51 → LD 07:22 → TRG 07:57 → OB 05-08 15:36
PROVIDERS: ADMIT Obstetrics & Gynecology; ATTEND Obstetrics & Gynecology
PROC: 10D00Z1 Extraction of Products of Conception, Low, Open Approach (ICD-10-PCS; 2021-05-07)
PROC: 3E0T3BZ Introduction of Anesthetic Agent into Peripheral Nerves and Plexi, Percutaneous Approach (ICD-10-PCS; 2021-05-07)
PROC: 3E0234Z Introduction of Serum, Toxoid and Vaccine into Muscle, Percutaneous Approach (ICD-10-PCS; principal; 2021-05-08)
DX: O34.211 Maternal care for low transverse scar from previous cesarean delivery (principal); Z20.822 Contact with and (suspected) exposure to COVID-19; O13.4 Gestational [pregnancy-induced] hypertension without significant proteinuria, complicating childbirth; O99.214 Obesity complicating childbirth; E66.9 Obesity, unspecified; Z23 Encounter for immunization; Z3A.37 37 weeks gestation of pregnancy; Z37.0 Single live birth
CPT/HCPCS: 36415; 81001; 82565; 83615; 83735; 84450; 84460; 84550; 85014; 85018; 85027; 86592; 86850; 86900; 86901; 87086; 88307; 93005; G0378; J0360; J0690; J1100; J1885; J2370; J2405; J2765; J3475; J3490; J7120; U0003

== ENCOUNTER 2021-05-13 09:33 | Inpatient (IN) | payer MEDICAID ==
--- NOTE | 2021-05-13 09:40 | History and Physical Report ---
History of Present Illness Date of examination: 05/13/21 (PP ShajiE sent from office) Date of admission: 05/13/21 09:33 Chief complaint: I feel better than yesterday but my blood pressure is still high. History of present illness: Pt is 7 days postop C/S. Office visit 05-12-21: Pt here today due to c/o elevated BP @ home this AM. Pt denies any HEMPHILL, blurred vision, chest pain. Does c/o some mild SOB when she is flat in bed. Encouraged elevation of HOB and to elevate feet and legs. No salt, increase hydration. Consulted with Dr Restrepo: 1. draw PIH labs today 2. start labetalol 200mg po BID 3. RTO tomorrow; appt made for 09 Pt is aware to call if BPs are >160/105 X 2 readings today She understands we will admit to hospital. Pt is here today alone with NB, drove herself. Pt is willing to be admitted but asks to try above POC. All questions addressed. She will have her SO come with her tomorrow. ...................................................................Claire ALVARADO May 12, 2021 9:[address] Restrepo this AM. BP 150/100 again no c/o HEMPHILL, blurred vision, chest pain. Pt states she had no SOB lying flat to sleep last evening. Pt to be sent to L&D for PP MGSO4. Pt agrees to POC. L&D notified, orders in EMR. ...................................................................Claire ALVARADO May 13, 2021 10:28 AM Medications and Allergies Allergies Allergy/AdvReac Type Severity Reaction Status Date / Time No Known Allergies Allergy Verified 05/13/21 12:56 Home Medications Medication Instructions Recorded Confirmed Last Taken Type Docusate Sodium [Colace] 100 mg PO BID PRN #60 capsule 05/07/21 Unknown Rx Ferrous Sulfate [Feosol 325 MG tab] 325 mg PO QDAY #60 tablet 05/07/21 Unknown Rx Ibuprofen [Motrin 800 MG tab] 800 mg PO Q8HR PRN #30 tablet 05/07/21 Unknown Rx Lidocain2.5%/Prilocai2.5% [Emla] 2 gm TP ONCE #1 tube 05/07/21 Unknown Rx One Daily Tablet 1 tab PO DAILY 05/07/21 05/07/21 1 Day Ago History ~05/06/21 oxyCODONE /ACETAMINOPHEN [Percocet 1 tab PO Q4HR #30 tab 05/07/21 Unknown Rx 5/325] Review of Systems All systems: negative - Physical Exam Breasts: Cardiovascular: Regular rate, Normal S1, Normal S2 Abdomen: Positive: normal appearance, soft, normal bowel sounds. Negative: distention, tenderness Genitourinary (Female): Positive: normal external genitalia Vulva: both: normal Vagina: Positive: normal moisture. Negative: discharge Cervix: Negative: lesion, discharge Uterus: Positive: normal size, normal contour Adnexa: both: normal Anus/Rectum: Positive: normal perianal skin, heme negative. Negative: rectal mass, hemorrhoids Extremities: Deep Tendon Reflex Grade: Normal +2 Results Result Diagrams: 05/13/21 15:59 05/13/21 15:59 All other labs normal. Assessment and Plan 30yo readmit for elevated BP in the period. Pt had one night of c/o SOB when lying flat, states it has resolved. Denies HEMPHILL, blurred vision, chest pain. "I just didn't feel well." Pt admitted for BP management. Dr Restrepo aware. Orders in EMR - Patient Problems (1) Pre-eclampsia, Onset Date: ~05/12/21 Current Visit: No Status: Acute
[2021-05-13] MEDS ORDERED: MAGNESIUM SULFATE 4 GM/100 ML BAG IV ONE (13:30)
[2021-05-13] MEDS ORDERED: LACTATED RINGERS 1,000 ML IV SCH (13:30)
--- NOTE | 2021-05-13 13:59 | XRay Report ---
CHEST 1 VIEW INDICATION: SOB . COMPARISON: None FINDINGS: Support devices: None. Heart: Within normal limits. Lungs/Pleura: No acute air space or interstitial disease. Additional findings: None. IMPRESSION: No acute findings. Signer Name: Negro Schmitt Jr, MD Signed: 05/13/2021 1:55 PM Workstation Name: [id number]
[2021-05-13] MEDS: MAGNESIUM SULFATE 40GM/1000ML 40 GM/1,000 ML BAG IV SCH (14:40)
[2021-05-13 16:14] LABS: Hemoglobin 7.4 gm/dl (10.1-14.3); Mean Corpuscular HGB Conc 31 % (30-34); Mean Corpuscular Volume 70 fl (79-97); Platelet Count 227 K/mm3 (140-440); Red Blood Count 3.41 M/mm3 (3.65-5.03)
[2021-05-13 16:15] LABS: Red Cell Distribution Width 21.1 % (13.2-15.2)
[2021-05-13 16:38] LABS: Alanine Aminotransferase 17 units/L (7-56); Uric Acid 8.1 mg/dL (3.5-7.6)
[2021-05-13] MEDS ORDERED: SIMETHICONE 80 MG CHEW TAB PO PRN (18:30)
[2021-05-13 19:22] LABS: Alanine Aminotransferase 19 units/L (7-56); Uric Acid 7.8 mg/dL (3.5-7.6)
[2021-05-13 20:28] LABS: Bilirubin,Urine NEG (Negative); Blood,Urine SM (Negative); Color,Urine Colorless (Yellow); Mucus,Urine FEW /HPF; Protein,Urine <15 mg/dL mg/dL (Negative); Urobilinogen,Urine < 2.0 mg/dL (<2.0); WBC,Urine < 1.0 /HPF (0.0-6.0)
[2021-05-13] MEDS: ACETAMINOPHEN 500 MG TAB PO PRN (23:59)
--- NOTE | 2021-05-14 07:25 | Progress Note ---
Assessment and Plan Pt laying in bed; reports headaches relieved by Tylenol, denies RUQ pain and vision changes. H&H with asymptomatic anemia; pt reports no issues with ambulation and states she was put on iron supplements after delivery but never took them. POC discussed with pt for iron supplementation, continued Magnesium therapy [id number], repeat CBC labs, monitoring overnight, and possible discharge home in am. Pt agreeable to plan. - Patient Problems (1) Pre-eclampsia, Onset Date: ~05/12/21 Current Visit: No Status: Acute (2) Previous section Current Visit: No Status: Acute Subjective - Subjective Date of service: 05/14/21 Principal diagnosis: PP readmit on Magnesium Sulfate Patient reports: pain well controlled (Pt reports headaches relieved with Tylenol) Objective - Vital Signs Latest vital signs: Vital Signs Temp Pulse BP Pulse Ox 05/14/21 07:17 76 135/74 05/14/21 07:04 81 93 05/14/21 07:00 86 93 05/14/21 06:59 95 H 94 05/14/21 06:54 90 94 05/14/21 06:53 87 94 05/14/21 06:49 89 95 05/14/21 06:48 86 91 05/14/21 06:47 76 123/75 05/14/21 06:44 77 95 05/14/21 06:41 83 94 05/14/21 06:39 94 H 98 05/14/21 06:34 80 97 05/14/21 06:29 81 97 05/14/21 06:24 78 97 05/14/21 06:19 79 97 05/14/21 06:17 70 142/73 05/14/21 06:14 80 97 05/14/21 06:09 76 97 05/14/21 06:04 85 96 05/14/21 06:03 81 94 05/14/21 05:59 74 96 05/14/21 05:54 82 96 05/14/21 05:49 66 96 05/14/21 05:47 72 149/73 05/14/21 05:44 74 96 05/14/21 05:39 80 96 05/14/21 05:34 76 96 05/14/21 05:29 81 96 05/14/21 05:24 77 96 05/14/21 05:19 81 96 05/14/21 05:17 73 130/72 05/14/21 05:14 90 98 05/14/21 05:09 75 96 05/14/21 05:04 80 95 05/14/21 04:59 78 95 05/14/21 04:55 72 94 05/14/21 04:54 74 95 05/14/21 04:49 78 95 05/14/21 04:47 68 140/78 05/14/21 04:44 76 96 05/14/21 04:43 67 91 05/14/21 04:39 77 89 05/14/21 04:37 81 93 05/14/21 04:34 79 94 05/14/21 04:32 79 94 05/14/21 04:29 81 95 05/14/21 04:25 70 94 05/14/21 04:24 78 95 05/14/21 04:19 80 95 05/14/21 04:17 76 135/84 05/14/21 04:15 98.4 F 05/14/21 04:14 75 96 05/14/21 04:10 73 94 05/14/21 04:09 75 95 05/14/21 04:04 75 95 05/14/21 03:59 72 95 05/14/21 03:54 72 95 05/14/21 03:51 82 94 05/14/21 03:49 93 H 97 05/14/21 03:47 77 123/76 05/14/21 03:44 77 96 05/14/21 03:39 73 96 05/14/21 03:34 76 96 05/14/21 03:29 73 96 05/14/21 03:28 76 93 05/14/21 03:24 78 94 05/14/21 03:22 79 93 05/14/21 03:19 70 94 05/14/21 03:17 76 139/86 94 05/14/21 03:14 91 H 95 05/14/21 03:12 77 92 05/14/21 03:09 82 85 05/14/21 03:06 74 94 05/14/21 03:04 73 94 05/14/21 02:59 73 94 05/14/21 02:56 74 93 05/14/21 02:54 77 93 05/14/21 02:49 74 93 05/14/21 02:48 84 94 05/14/21 02:47 77 135/84 05/14/21 02:44 77 93 05/14/21 02:39 80 93 05/14/21 02:34 79 93 05/14/21 02:29 79 93 05/14/21 02:24 80 93 05/14/21 02:19 79 94 05/14/21 02:17 78 132/82 05/14/21 02:14 79 92 05/14/21 02:09 78 92 05/14/21 02:08 79 92 05/14/21 02:04 78 93 05/14/21 01:59 74 93 05/14/21 01:54 82 92 05/14/21 01:49 98 H 98 05/14/21 01:47 77 123/66 05/14/21 01:44 79 97 05/14/21 01:39 80 97 05/14/21 01:34 79 97 05/14/21 01:31 81 94 05/14/21 01:29 79 97 05/14/21 01:24 90 97 05/14/21 01:19 86 96 05/14/21 01:17 81 128/67 05/14/21 01:16 84 94 05/14/21 01:14 80 96 05/14/21 01:09 80 96 05/14/21 01:04 80 96 05/14/21 00:59 83 97 05/14/21 00:54 86 96 05/14/21 00:49 95 H 98 05/14/21 00:47 84 132/72 05/14/21 00:44 87 97 05/14/21 00:39 84 96 05/14/21 00:34 85 97 05/14/21 00:29 85 97 05/14/21 00:24 89 96 05/14/21 00:19 105 H 98 05/14/21 00:17 86 132/80 05/14/21 00:14 85 97 05/14/21 00:09 85 97 05/14/21 00:05 90 135/79 05/14/21 00:04 95 H 96 05/13/21 23:59 103 H 95 05/13/21 23:54 88 95 05/13/21 23:52 92 H 94 05/13/21 23:49 90 97 05/13/21 23:44 93 H 97 05/13/21 23:41 96 H 93 05/13/21 23:39 93 H 96 05/13/21 23:34 93 H 96 05/13/21 23:29 94 H 95 05/13/21 23:24 91 H 98 05/13/21 23:19 89 93 05/13/21 23:18 90 94 05/13/21 23:17 90 148/87 05/13/21 23:15 99.0 F 05/13/21 23:14 94 H 97 05/13/21 23:09 103 H 97 05/13/21 23:04 89 97 05/13/21 22:59 93 H 96 05/13/21 22:54 92 H 97 05/13/21 22:49 95 H 97 05/13/21 22:47 93 H 142/90 05/13/21 22:44 91 H 74 L 05/13/21 22:39 65 80 L 05/13/21 22:34 177 H 81 L 05/13/21 22:28 93 H 76 L 05/13/21 22:23 98 H 97 05/13/21 22:18 103 H 98 05/13/21 22:17 93 H 141/95 05/13/21 22:13 93 H 99 05/13/21 22:08 92 H 98 05/13/21 22:03 97 H 98 05/13/21 21:58 93 H 99 05/13/21 21:53 95 H 99 05/13/21 21:50 95 H 148/72 05/13/21 21:48 105 H 100 05/13/21 21:47 108 H 182/94 05/13/21 21:43 96 H 99 05/13/21 21:38 95 H 98 05/13/21 21:33 97 H 99 05/13/21 21:28 91 H 98 05/13/21 21:23 95 H 98 05/13/21 21:18 92 H 98 05/13/21 21:17 91 H 137/88 05/13/21 21:13 95 H 99 05/13/21 21:08 99 H 94 05/13/21 21:03 97 H 99 05/13/21 20:58 96 H 98 05/13/21 20:53 94 H 97 05/13/21 20:48 94 H 98 05/13/21 20:47 91 H 133/85 05/13/21 20:43 93 H 96 05/13/21 20:39 88 92 05/13/21 20:38 85 97 05/13/21 20:33 94 H 99 05/13/21 20:30 98.7 F 98 H 91 05/13/21 20:28 88 97 05/13/21 20:24 98 H 94 05/13/21 20:23 94 H 96 05/13/21 20:18 102 H 95 05/13/21 20:17 101 H 94 05/13/21 20:13 95 H 98 05/13/21 20:08 95 H 97 05/13/21 20:07 99 H 134/91 05/13/21 20:03 93 H 97 05/13/21 19:58 94 H 97 05/13/21 19:53 98 H 96 05/13/21 19:51 100 H 92 05/13/21 19:48 96 H 95 05/13/21 19:47 94 H 127/94 05/13/21 19:43 103 H 99 05/13/21 19:38 93 H 95 05/13/21 19:33 95 H 97 05/13/21 19:28 90 98 05/13/21 19:23 97 H 98 05/13/21 19:18 95 H 98 05/13/21 19:17 89 138/96 05/13/21 19:13 98 H 98 05/13/21 19:08 96 H 98 05/13/21 19:03 85 98 05/13/21 18:58 92 H 99 05/13/21 18:53 99 H 96 05/13/21 18:52 88 05/13/21 18:48 96 H 99 05/13/21 18:47 92 H 142/99 05/13/21 18:43 91 H 99 05/13/21 18:38 95 H 98 05/13/21 18:33 92 H 97 05/13/21 18:28 91 H 99 05/13/21 18:23 93 H 99 05/13/21 18:19 93 H 155/95 05/13/21 18:18 90 155/95 97 05/13/21 18:13 88 98 05/13/21 18:08 96 H 97 05/13/21 18:03 93 H 99 05/13/21 18:00 98.2 F 05/13/21 17:58 101 H 98 05/13/21 17:53 93 H 98 05/13/21 17:48 97 H 156/93 97 05/13/21 17:43 102 H 98 05/13/21 17:38 85 98 05/13/21 17:33 80 96 05/13/21 17:28 94 H 100 05/13/21 17:23 82 97 05/13/21 17:18 82 99 05/13/21 17:17 80 159/93 05/13/21 17:13 83 98 05/13/21 17:08 93 H 97 05/13/21 17:03 99 H 97 05/13/21 16:58 86 97 05/13/21 16:53 82 95 05/13/21 16:48 83 99 05/13/21 16:47 82 151/91 05/13/21 16:43 91 H 99 05/13/21 16:38 90 99 05/13/21 16:33 86 99 05/13/21 16:28 89 98 05/13/21 16:23 87 98 05/13/21 16:18 85 98 05/13/21 16:14 84 140/94 05/13/21 16:13 88 99 05/13/21 16:08 98.8 F 85 98 05/13/21 16:04 93 H 174/111 05/13/21 16:03 86 98 05/13/21 15:58 97 H 98 05/13/21 15:53 80 97 05/13/21 15:48 90 98 05/13/21 15:43 86 98 05/13/21 15:38 84 99 05/13/21 15:33 86 99 05/13/21 15:28 88 98 05/13/21 15:23 102 H 99 05/13/21 15:18 90 97 05/13/21 15:13 86 98 05/13/21 15:08 85 98 05/13/21 15:04 81 145/89 05/13/21 15:03 88 98 05/13/21 14:58 92 H 99 05/13/21 14:53 89 99 05/13/21 14:48 90 99 05/13/21 14:43 91 H 99 05/13/21 14:38 84 97 07/08/21 14:33 88 98 05/13/21 14:28 83 98 05/13/21 14:23 87 98 05/13/21 14:18 82 97 05/13/21 14:13 77 98 05/13/21 14:08 86 98 05/13/21 14:03 83 138/91 98 Intake and Output 05/13/21 05/13/21 05/14/21 15:59 23:59 07:59 Intake Total 120 120 Output Total 200 1700 1999 Balance -200 -1580 -1880 Intake: Oral 120 120 Output: Urine 200 1700 1999 Indwelling Catheter 200 1700 2000 Other: Total, Intake Amount 120 120 Total, Output Amount [phone] Weight 201 lb - Exam Breasts: Present: normal Cardiovascular: Present: Regular rate, Normal S1, Normal S2, No murmurs Lungs: Present: Clear to auscultation, Normal air movement Abdomen: Present: normal appearance, soft Vulva: both: normal Uterus: Present: normal Extremities: Present: normal Deep Tendon Reflex Grade: Normal +2 Incision: Present: normal, dry, intact - Labs Labs: Abnormal lab results 05/13/21 05/13/21 05/13/21 Range/Units 13:45 15:59 15:59 RBC 3.41 L (3.65-5.03) M/mm3 Hgb 7.4 L (10.1-14.3) gm/dl Hct 24.0 L (30.3-42.9) % MCV 70 L (79-97) fl MCH 22 L (28-32) pg RDW 21.1 H (13.2-15.2) % Uric Acid 7.8 H 8.1 H (3.5-7.6) mg/dL Magnesium (1.7-2.3) mg/dL Lactate Dehydrogenase 270 H 218 H (91-180) units/L 05/13/21 05/14/21 Range/Units 17:54 00:23 RBC (3.65-5.03) M/mm3 Hgb (10.1-14.3) gm/dl Hct (30.3-42.9) % MCV (79-97) fl MCH (28-32) pg RDW (13.2-15.2) % Uric Acid (3.5-7.6) mg/dL Magnesium 4.40 H 5.60 H (1.7-2.3) mg/dL Lactate Dehydrogenase (91-180) units/L
[2021-05-14] MEDS: ACETAMINOPHEN 500 MG TAB PO PRN ×2 (09:50→22:29)
[2021-05-14] MEDS: MAGNESIUM SULFATE 40GM/1000ML 40 GM/1,000 ML BAG IV SCH (10:50)
--- NOTE | 2021-05-14 13:57 | Event Note ---
Date: 05/14/21 Pt reports persisting headache at this time and no relief from last dose of tylenol. Denies all other complaints; VSS. Dr. Latif consulted and orders received for CT scan. LUIZ Frost made aware.
--- NOTE | 2021-05-14 14:50 | Cat Scan Report ---
CT BRAIN: 05/14/2021 INDICATION / CLINICAL INFORMATION: OMNI 300 100 ML X 7 DAYS persistent headache. COMPARISON: None available. FINDINGS: BRAIN/INTRACRANIAL STRUCTURES: Unenhanced and enhanced CT images of the brain demonstrate no evidence of acute intracranial abnormality. Ventricles and sulci are within normal limits of size and shape for a patient of this age. There is no evidence of ischemic injury, hemorrhage, or mass. There are no abnormal extra-axial fluid collections. Postcontrast images demonstrate no abnormal contrast enhancement. Normal enhancement patterns are associated with the major dural sinuses and major vascular structures . EXTRACRANIAL STRUCTURES: Unremarkable. IMPRESSION: Negative unenhanced and enhanced CT of the brain. All CT scans at this location are performed using dose reduction to ALARA by means of automated expos ure control. Signer Name: Nicho Simental MD Signed: 05/14/2021 2:46 PM Workstation Name: [id number]
[2021-05-14 16:19] LABS: Hemoglobin 8.5 gm/dl (10.1-14.3); Mean Corpuscular HGB Conc 31 % (30-34); Mean Corpuscular Volume 70 fl (79-97); Platelet Count 260 K/mm3 (140-440); Red Blood Count 3.99 M/mm3 (3.65-5.03)
[2021-05-14 16:23] LABS: Red Cell Distribution Width 21.3 % (13.2-15.2)
[2021-05-14] MEDS: FERROUS SULFATE 325 MG TAB PO SCH (22:28)
[2021-05-15] MEDS: FERROUS SULFATE 325 MG TAB PO SCH (09:09)
--- NOTE | 2021-05-15 11:07 | Discharge Summary ---
Providers - Providers Date of Admission: 05/13/21 12:48 Date of discharge: 05/15/21 (desires d/c home) Attending physician: MARTINA GARCIA Primary care physician: COUNSELLORS Hospitalization Reason for admission: pre-e Condition: Good Disposition: DC-01 TO HOME OR SELFCARE Final Discharge Diagnosis (Prints w/discharge instructions): pre-e, anxiety Time spent for discharge: 30 - Discharge Diagnoses (1) Anxiety Status: Acute (2) Pre-eclampsia, Status: Acute Core Measure Documentation - Palliative Care Palliative Care/ Comfort Measures: Not Applicable - Core Measures Any of the following diagnoses?: none Exam - Constitutional Vitals: Temp Pulse Resp BP Pulse Ox 98.4 F 74 16 136/89 94 05/15/21 08:20 05/15/21 08:20 05/15/21 08:20 05/15/21 08:20 05/15/21 08:20 General appearance: Present: no acute distress, well-nourished - EENT Eyes: Present: PERRL ENT: hearing intact, clear oral mucosa - Neck Neck: Present: supple, normal ROM - Respiratory Respiratory effort: normal Respiratory: bilateral: CTA - Cardiovascular Rhythm: regular Heart Sounds: Absent: rub, click - Extremities Extremities: No edema Peripheral Pulses: within normal limits - Abdominal General gastrointestinal: Present: soft, non-tender, non-distended, normal bowel sounds Female genitourinary: Present: normal - Integumentary Integumentary: Present: clear, warm, dry - Musculoskeletal Musculoskeletal: gait normal, strength equal bilaterally - Psychiatric Psychiatric: appropriate mood/affect, intact judgment & insight - Neurologic Neurologic: CNII-XII intact, moves all extremities - Additional findings Additional findings: incision D&I - steristrips removed. lochia scant, fundus firm and low in pelvis. Plan Activity: no restrictions Diet: low salt Wound: open to air, keep clean and dry Follow up with: ALFONSO SWAIN MD [Primary Care Provider] - 7 Days FIDEL COELHO MD [Staff Physician] - 05/18/21 (Please make appointment on Monday for blood pressure check and incision check. Call for any questions or concerns. You medications have been sent to your pharmacy electronically. ) Prescriptions: labetaloL [Labetalol 200mg TAB] 200 mg PO BID #60 tablet Escitalopram Oxalate [Lexapro] 5 mg PO QDAY #30 tablet
--- NOTE | 2021-05-15 11:11 | Event Note ---
Date: 05/15/21 b/p controlled on Labetalol 200mg BID. pt denies HEMPHILL, visual changes, SOB or epigastric pain. She does report feeling anxiety. she denies depression. discussed options for medication, pt elects to try anti-anxiety medication. d/c to home with f/u early next week. She will f/u in the office Monday when her son has his circumcision.
[2021-05-15 11:31] VITALS: BP 139/84
== END 2021-05-15 11:55 | disposition home or self-care (01) | DRG 776 ==
LOC: 3A 09:33 → UNDOADMIN 09:33 → MERGE 12:48 → LD 12:48 → OB 05-14 17:56
PROVIDERS: ADMIT Obstetrics & Gynecology; ATTEND Obstetrics & Gynecology
DX: O14.95 Unspecified pre-eclampsia, complicating the puerperium (principal); O99.345 Other mental disorders complicating the puerperium; F41.9 Anxiety disorder, unspecified; Z20.822 Contact with and (suspected) exposure to COVID-19
CPT/HCPCS: 36415; 70470; 71045; 81001; 82565; 83615; 83735; 84450; 84460; 84550; 85027; G0378; J3475; J7120; Q0177; Q9967; U0003